=== PATIENT | male | born 1950 | race Caucasian/White ===

== ENCOUNTER → 2017-09-03 | Outpatient (CLI) | payer OTHER | END | disposition home or self-care (01) | LOC: ECHO 14:33 | DX: I35.0 Nonrheumatic aortic (valve) stenosis (principal); I31.3 Pericardial effusion (noninflammatory) | CPT/HCPCS: 93306 ==

== ENCOUNTER → 2017-09-12 | Outpatient (CLI) | payer OTHER ==
[2017-09-12] MEDS: GADOBUTROL 7.5 MMOL/7.5 ML VIAL IV ×2 (10:14)
== END | disposition home or self-care (01) ==
LOC: KCIC MRI 08:29
DX: I63.9 Cerebral infarction, unspecified (principal)
CPT/HCPCS: 70546; 70553; A9585

== ENCOUNTER → 2018-01-07 | Outpatient (CLI) | payer OTHER ==
[~2018-01-07] MED LIST: AMLO2.5T3 PO; ASPI-630 PO; ATORVASTATIN CA80 MG PO; BUDE10.2 IH; CIPR500T PO; CLOP75TA57 PO; EZET10TA18 PO; FEXO180T16 PO; FURO40TA4 PO; GABA-587 PO; GABA600T2 PO; GADOBUTROL 10 MMOL/10 ML VIAL IV ONE; IBUP-1060 PO; INSU100C4 SQ; ISOS30TA4 PO; METO10TA PO; METO25TA2 PO; METR500T8 PO; NITR0.4T SL; PANT20TA2 PO; PROAIR HFA8.5 GM INH; RANO500T2 PO; TAMS0.4C2 PO; TIOT18CA IH; TRAM50TA PO
--- NOTE | 2018-01-07 11:26 | KCIC ---
MRI of the Brain without and with Contrast 01/07/2018 Clinical History: Diplopia and unsteady gait. Technique: Unenhanced T1-weighted sagittal and axial and FLAIR, T2-weighted, gradient echo and diffusion-weighted axial images of the brain were obtained. After the intravenous administration of 12 cc of Gadavist, enhanced T1-weighted axial,and coronal images of the brain were obtained. Findings: Comparison study is dated 09/12/2017. There is generalized parenchymal atrophy. Patchy, confluent and multiple focal areas of abnormally increased signal intensity are seen within the periventricular and subcortical white matter of both cerebral hemispheres on the FLAIR and T2-weighted images consistent with areas of small vessel ischemic disease. These have not significantly changed. The enhancing lesion involving the right thalamus has resolved. This is felt to most likely represent subacute infarct on the previous examination. No acute parenchymal abnormality is seen. No abnormal area of contrast enhancement is noted. No extra-axial fluid collection is seen. There is no MRI evidence of acute ischemia/infarction. The orbits are within normal limits. Mild mucosal thickening is seen scattered throughout the paranasal sinuses. A 2.3 cm mucous retention cyst is seen involving the right maxillary sinus. A moderate sized right mastoid effusion is seen. A minimal left mastoid effusion is noted. Normal flow voids are seen within the major vascular structures surrounding the brain parenchyma. Impression: The small area of enhancement involving the right thalamus seen on previous examination has resolved as outlined above. No acute parenchymal abnormality is seen. Electronically signed by: Georges Bee MD (01/07/2018 11:22 AM) [facility]
== END | disposition home or self-care (01) ==
LOC: KCIC MRI 09:07
PROVIDERS: ATTEND Internal Medicine
DX: H53.2 Diplopia (principal)
CPT/HCPCS: 70553; 82565; A9585

== ENCOUNTER 2019-02-17 06:36 | Inpatient (IN) | payer OTHER ==
[~2019-02-17] VITALS: Ht 177.8 cm; Wt 125.8 kg
[2019-02-17] VITALS (15 sets, daily range): BP systolic 115–145; BP diastolic 50–78
[~2019-02-17 06:36] MED LIST changes: +ALBU2.5V8 INH; -AMLO2.5T3 PO; +AMLO2.5T5 PO; -EZET10TA18 PO; +EZET10TA20 PO; -GABA-587 PO; +GABA-689 PO; -GABA600T2 PO; +GABA600T7 PO; -GADOBUTROL 10 MMOL/10 ML VIAL IV ONE; +METR-34 PO; -METR500T8 PO; -NITR0.4T SL; +NITR0.4T24 SL; -PROAIR HFA8.5 GM INH
[2019-02-17] MEDS ORDERED: FURO-68 PO (10:25)
[2019-02-17] MEDS ORDERED: ISOS60TA2 PO (10:25)
[2019-02-17] MEDS ORDERED: INSU100I13 SQ (10:25)
[2019-02-17] MEDS ORDERED: GABA600T7 PO (10:25)
[2019-02-17] MEDS ORDERED: CLOP75TA PO (10:25)
[2019-02-17] MEDS ORDERED: ACET500T33 PO (10:25)
[2019-02-17] MEDS ORDERED: EZET10TA20 PO (10:25)
[2019-02-17] MEDS ORDERED: ATORVASTATIN CA80 MG PO (10:25)
[2019-02-17] MEDS ORDERED: LIDO30CR TP (10:25)
[2019-02-17] MEDS ORDERED: TAMS0.4C97 PO (10:25)
[2019-02-17] MEDS ORDERED: TRAM50TA PO (10:25)
[2019-02-17] MEDS ORDERED: ASPI-630 PO (10:25)
[2019-02-17] MEDS ORDERED: AMLO10TA8 PO (10:25)
[2019-02-17] MEDS ORDERED: RANO10002 PO (10:25)
[2019-02-17] MEDS ORDERED: METO100T7 PO (10:25)
[2019-02-17] MEDS ORDERED: NITR0.4T22 SL (10:25)
[2019-02-17] MEDS ORDERED: LIDO700A21 TP (10:25)
[2019-02-17] MEDS ORDERED: INSU100I17 SQ (10:25)
[2019-02-17] MEDS ORDERED: HYDR410O TP (10:25)
[2019-02-17] MEDS ORDERED: CARB15DR3 EACHEYE (10:25)
[2019-02-17] MEDS ORDERED: METF10007 PO (10:25)
[2019-02-17] MEDS ORDERED: TIOT18CA IH (10:25)
--- NOTE | 2019-02-17 10:34 | PDOC2 ---
JACI ZAMORANO CLINIC NURSE 02/17/19 1034: CARDIAC CONSULT DATE OF CONSULT Date of Consult DATE: 02/17/19 TIME: 10:33 REASON FOR CONSULT Reason for Consult: Chest pain, elevated troponin REFERRING PHYSICIAN Referring Physician: Dr. Palm SOURCE Source: Chart review, Patient HISTORY OF PRESENT ILLNESS HISTORY OF PRESENT ILLNESS This is a 68 yo male who transferred from the [facility] secondary to chest pain and elevated troponin. Patient follows with the [facility]. Has extensive cardiac history as noted below. Had routine visit with Dr. Smith a week and a half ago. Was SOA, slightly disoriented, and had mild chest pain. Was referred to the ED for further evaluation and treatment. Was a dmitted to the ICU. Hgb drifted from 12 range down to 7.4. Concerns for GI bleed. Underwent EGD and colonoscopy without any obvious bleeding per . Was discharge home with iron this past Friday. [place] well over the weekend. On Friday morning, legs were weak "felt like Jello" and had difficulty with speech. Had mild pain in his central chest and shortness of breath. Decided to go back to the ED at the [facility]. Overnight, developed excruciating pain in his central chest. Describes as squeezing. Radiated down his left arm. Associated with nausea/vomiting, belching, and shortness of breath. Took nitro x4 without any significant relief. Was start on nitro and heparin gtt without any significant improvement. Was given IV morphine, which finally improved the pain. Trop was noted to be elevated, reportedly 6.5, and patient was transferred to [facility] for further evaluation and treatment. Presently CP free. PAST MEDICAL HISTORY Cardiovascular: CAD, HTN, IA, Hyperlipidemia, Aortic stenosis Pulmonary: COPD, Other (LUNA) GI: GERD, Peptic Ulcer disease Psych: Anxiety Musculoskeletal: Osteoarthritis Renal/: Chronic renal insuff, Benign prostatic enlarg. Endocrine: Diabetes PAST SURGICAL HISTORY Past Surgical History: Cholecystectomy, CABG, Cataract Removal, Total knee replacement FAMILY HISTORY Family History: Cancer, Diabetes, Hypertension SOCIAL HISTORY Smoke: Quit (1 week ago ) ALCOHOL: none Drugs: None Lives: with Family ALLERGIES ALLERGIES: Coded Allergies: Fish Containing Products (Unverified Allergy, Intermediate, 03/18/16) Iodinated Contrast Media (Verified Allergy, Intermediate, 03/18/16) codeine (Unverified Allergy, Intermediate, 03/18/16) fenofibrate (Unverified Allergy, Intermediate, 03/18/16) lisinopril (Unverified Allergy, Intermediate, 03/18/16) losartan (Unverified Allergy, Intermediate, 03/18/16) niacin (Unverified Allergy, Intermediate, 03/18/16) nifedipine (Unverified Allergy, Intermediate, 03/18/16) procaine (Unverified Allergy, Intermediate, 03/18/16) rosuvastatin (Unverified Allergy, Intermediate, 03/18/16) spironolactone (Unverified Allergy, Intermediate, 03/18/16) Uncoded Allergies: SEAFOOD (Allergy, Unknown, 03/18/16) ROS Review of System 14 point ROS conducted with pertinent positives noted above in HPI. PHYSICAL EXAM General: Alert, Oriented X3, Cooperative, No acute distress HEENT: Atraumatic, Mucous membr. moist/pink Lungs: Other (diminished bases; on BiPAP) Heart: Regular rate, Other (distant heart tones ) Abdomen: Soft, Other (obese ) Extremities: No edema, Normal pulses Skin: No significant lesion Neuro: Normal speech, Sensation intact Psych/Mental Status: Mental status NL, Mood NL MUSCULOSKELETAL: Osteoarthritic changes both hands ECHOCARDIOGRAM ECHOCARDIOGRAM <Conclusion> The systolic function is low normal. EF 50-55% Grossly normal wall motion. Not well visualized due to suboptimal images. Doppler and Color Flow revealed mild aortic regurgitation. There is mild aortic valve stenosis. MG 20 mm Hg. Doppler and Color Flow revealed trace to mild tricuspid regurgitation. No significant pulmonary HTN. There is a minimal pericardial effusion. DATE: 09/03/17 1750 STRESS TEST STRESS TEST Conclusion 1. No evidence of stress induced EKG changes. 2. Normal myocardial perfusion at stress and rest. 3. Normal EF with stress. EF > 65% 4. Low risk study. DATE: 05/18/15 1420 HEART CATH HEART CATH 01/08/16 [facility] cath; Petent main-ramus stent, DATA RECOVERY PLANNER LAD (patent SARMIENTO-mLAD graft) 09/04/17: 70% main, DATA RECOVERY PLANNER pLAD (SARMIENTO-mid LAD patent); DATA RECOVERY PLANNER pCX (patent SVG-OM2) 11/19/17 [facility]: 50% main, DATA RECOVERY PLANNER pLAD (patent SARMIENTO -mid LAD); DATA RECOVERY PLANNER proximal CX (30% SVG-OM2) 09/04/18 [facility]: 50% main, DATA RECOVERY PLANNER prox LAD (patent SARMIENTO- mid LAD); DATA RECOVERY PLANNER prox CX (50% SVG-OM2) ASSESSMENT/PLAN ASSESSMENT/PLAN 1. Chest pain, unstable angina 2. NSTEMI; trop 14.9 3. CAD s/p CABG 2005. Most recent cath 08/30 with 50% main lesion, DATA RECOVERY PLANNER proximal LAD, patent SARMIENTO-LAD, DATA RECOVERY PLANNER proximal Cx, 50% lesion SVG-OM2. On Ranexa 1000mg BID 4. Acute on chronic respiratory failure, COPD. Requiring BiPAP. Doubt CHF 5. Anemia; concerns for GI bleed last week. HGB drop from 12 range to 7.4. Improved to 8.7 (02/17) s/p iron infusion. No blood transfusion received. Colonoscopy without bleeding source but reportedly referred to oncologist per . 6. ? CKD. 7. Hypertension 8. Hyperlipidemia 9. Diabetes, II 10. LUNA, morbid obestiy 11. Tobaccoism; quit last week Recommendations Trend troponin EKG BMP Obtain cardiac records from [place] Limited echo to assess LV systolic function Heparin for CV protocol Monitor H and H overnight Supportive care Keep NPO after midnight with possibility of cardiac cath in am. MECHELLE HARRISON MD 02/17/19 1578: CARDIAC CONSULT ASSESSMENT/PLAN ASSESSMENT/PLAN Patient seen and examined. Agree with above nurse practitioner note. 68-year-old man with multiple cardiovascular comorbidities with concern for recent GI bleeding presents with a recurrent non-ST elevation IA We will await outside hospital records. Depending on his pain and troponin elevation may consider cardiac catheterization tomorrow if he does not have any further bleeding stigmata overnight. Patient is critically ill discussed with his [id number]. Greater than 60 minutes critical care time, spent discussing the case with the patient, reviewing outside hospital records and discussing case with consult and physicians. JACI ZAMORANO APRN Feb 17, 2019 10:34 MECHELLE HARRISON MD Feb 17, 2019 18:18
--- NOTE | 2019-02-17 10:55 | NUR ---
1043 Adm/trans from [facility] per EMS after increased /unrelieved CP 01/21,SOA requiring BiPAP use. Heparin started there after 4000unit bolus with change in Heparin rate to 12u/KG after admit to [facility] per protocol.Reported EKG to be non -stemi. Reports CP now 07/22. Consult to cardiology... Nano KELLER aware. See flow sheets for further specifics.
--- NOTE | 2019-02-17 11:38 | EKG ---
[facility] [address] [place] [address] Test Date: 2019-02-17 Test Time: 11:30:18 Pat Name: CE MORALES Department: Room: 109 1 Gender: M Hack Driver: : 1950 Requested By: JACI ZAMORANO Order Number: [id number] Reading MD: Measurements Intervals [place] Rate: 85 P: 90 CO: 110 QRS: -10 QRSD: 178 T: 177 QT: 384 QTc: 463 Interpretive Statements SINUS RHYTHM CONSIDER WPW, TYPE B LEFTWARD AXIS QRS(T) CONTOUR ABNORMALITY CONSIDER INFERIOR INFARCT ST & T ABNORMALITY, CONSIDER HIGH LATERAL ISCHEMIA OR LEFT VENTRICULAR STRAIN ABNORMAL ECG RI6.01 Unconfirmed report No previous ECG available for comparison
[2019-02-17 12:14] LABS: CALCIUM 8.9 mg/dL (8.5-10.1); CREATININE 1.8 mg/dL (0.7-1.3); GFR 37.8
[2019-02-17 12:19] LABS: ALBUMIN 3.2 g/dL (3.4-5.0); ALBUMIN/GLOBULIN RATIO 0.8 (1.0-1.7); TOTAL BILIRUBIN 0.7 mg/dL (0.2-1.0); TOTAL PROTEIN 7.1 g/dL (6.4-8.2)
[2019-02-17 12:57] LABS: HEMATOCRIT 26.2 % (39.0-53.0); HEMOGLOBIN 8.7 g/dL (13.0-17.5); RED BLOOD COUNT 3.51 x10^6/uL (4.30-5.70); RED CELL DISTRIBUTION WIDTH 18.7 % (11.5-14.5); WHITE BLOOD COUNT 10.8 x10^3/uL (4.0-11.0)
[2019-02-17] MEDS ORDERED: CLOPIDOGREL BISULFATE 75 MG TABLET PO SCH (13:00)
--- NOTE | 2019-02-17 14:24 | PDOC1 ---
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 Basically he developed chest pain and was noted be quite anemic at the [facility] He was accepted as a transfer patient is now on the ICU where he is being examined Past Medical/Surgical History: PMH/PSH: COPD CABG Hypertension Hyperlipidemia Diabetes Obstructive sleep apnea Allergies: Allergies: Coded Allergies: Fish Containing Products (Unverified Allergy, Intermediate, 03/18/16) Iodinated Contrast Media (Verified Allergy, Intermediate, 03/18/16) codeine (Unverified Allergy, Intermediate, 03/18/16) fenofibrate (Unverified Allergy, Intermediate, 03/18/16) lisinopril (Unverified Allergy, Intermediate, 03/18/16) losartan (Unverified Allergy, Intermediate, 03/18/16) niacin (Unverified Allergy, Intermediate, 03/18/16) nifedipine (Unverified Allergy, Intermediate, 03/18/16) procaine (Unverified Allergy, Intermediate, 03/18/16) rosuvastatin (Unverified Allergy, Intermediate, 03/18/16) spironolactone (Unverified Allergy, Intermediate, 03/18/16) Uncoded Allergies: SEAFOOD (Allergy, Unknown, 03/18/16) Family History: Family History: Hypertension Social History: Social Hisoty: He does not drink smoke or take drugs 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 Current Medications: Current Medications Current Medications Clopidogrel Bisulfate (Plavix) 75 mg DAILY PO ; Start 02/17/19 at 13:00 Isosorbide Mononitrate (Imdur) 30 mg DAILY PO ; Start 02/17/19 at 13:00 Ranolazine (Ranexa) 500 mg BID PO ; Start 02/17/19 at 13:00 Atorvastatin Calcium (Lipitor) 80 mg QHS PO ; Start 02/17/19 at 21:00 Metoprolol Tartrate (Lopressor) 50 mg BID PO ; Start 02/17/19 at 13:00 Active Scripts Active Reported Novolog Flexpen (Insulin Aspart) 100 Unit/1 Ml Insuln.pen 10 Unit SQ TIDAC Lantus Solostar (Insulin Glargine,Hum.rec.anlog) 100 Unit/1 Ml Insuln.pen 35 Unit SQ QHS Hydrophilic Ointment 410 Gm Oint...g. 410 Gm TP PRN BID Tylenol Extra Strength (Acetaminophen) 500 Mg Tablet 500 Mg PO PRN Q8HRS PRN Metformin Hcl 1,000 Mg Tablet 1,000 Mg PO BIDWMEALS Lidocaine-Prilocaine Cream (Lidocaine/Prilocaine) 30 Gm Cream..g. 1 Surinder TP UD PRN Lidocaine PATCH (Lidocaine) 1 Each Adh..patch 1 Each TP DAILY REMOVE AFTER 12 HOURS Refresh Optive Eye Drops (Carboxymethylcellulos/Glycerin) 15 Ml Drops 1 Drop EACHEYE QID Tramadol Hcl 50 Mg Tablet Unknown Dose PO Q6HRS PRN Spiriva (Tiotropium Manning) 18 Mcg Cap.w.dev 2 Inh IH DAILY Tamsulosin Hcl 0.4 Mg Cap.er.24h Unknown Dose PO DAILY Ranexa (Ranolazine) 500 Mg Tab.er.12h 500 Mg PO Protonix (Pantoprazole Sodium) 20 Mg Tablet.dr 20 Mg PO DAILY Nitrostat (Nitroglycerin) 0.4 Mg Tab.subl 0.4 Mg SL PRN Q5MIN PRN Metronidazole 500 Mg Tablet 500 Mg PO TID Metoclopramide Hcl 10 Mg Tablet 10 Mg PO BIDAC Isosorbide Mononitrate Er (Isosorbide Mononitrate) 30 Mg Tab.er.24h 30 Mg PO DAILY Ibuprofen 800 Mg Tablet 800 Mg PO PRN Q6HRS PRN Gabapentin (Gabapentin) 400 Mg Capsule 400 Mg PO TID Furosemide 40 Mg Tablet 40 Mg PO DAILY Fexofenadine Hcl 180 Mg Tablet 180 Mg PO DAILY Plavix (Clopidogrel Bisulfate) 75 Mg Tablet 75 Mg PO DAILY Ciprofloxacin Hcl 500 Mg Tablet 500 Mg PO BID Symbicort 160-4.5 Mcg Inhaler (Budesonide/Formoterol Fumarate) 10.2 Gm Hfa.aer.ad 1 Puff IH BID Atorvastatin Calcium 80 Mg Tablet 80 Mg PO DAILY Amlodipine Besylate 2.5 Mg Tablet 2.5 Mg PO DAILY Proair Hfa Inhaler (Albuterol Sulfate) 8.5 Gm Hfa.aer.ad 1 Puff INH PRN Q6HRS PRN Aspirin 81 Mg Tab.chew Unknown Dose PO Tramadol Hcl 50 Mg Tablet Unknown Dose PO Q6HRS PRN Zetia (Ezetimibe) 10 Mg Tablet Unknown Dose PO DAILY Novolog (Insulin Aspart) 100 Unit/1 Ml Cartridge Unknown Dose SQ Toprol Xl (Metoprolol Succinate) 25 Mg Tab.er.24h Unknown Dose PO DAILY ROS: Review of Systems Review of System REVIEW OF SYSTEMS: GENERAL: Denies weakness SKIN: No bruising, hair changes or rashes. EYES: No blurred, double or loss of vision. NOSE AND THROAT: No history of nosebleeds, hoarseness or sore throat. HEART: No history of palpitations, chest pain or shortness of breath on exertion. LUNGS: Denies cough, hemoptysis, wheezing or shortness of breath. GASTROINTESTINAL: Denies changes in appetite, nausea, vomiting, diarrhea or constipation. GENITOURINARY: No history of frequency, urgency, hesitancy or nocturia. NEUROLOGIC: Denies history of numbness, tingling, tremor or weakness. PSYCHIATRIC: No history of panic, anxiety or depression. ENDOCRINE: No history of heat or cold intolerance, polyuria or polydipsia. EXTREMITIES: Denies muscle weakness, joint pain, pain on walking or stiffness. Physical Exam: Vital Signs: Vital Signs Date Time Temp Pulse Resp B/P (MAP) Pulse Ox O2 Delivery O2 Flow Rate FiO2 02/17/19 11:00 19 129/62 (84) 99 BiPAP/CPAP 02/17/19 10:30 84 02/17/19 09:42 98.3 98.3 Physcial Exam: GEN.: No apparent distress. Alert and oriented. HEENT: Head is normocephalic, atraumatic NECK: Supple, no JVD LUNGS: Clear to auscultation without rhonchi or wheezing HEART: RRR, S1, S2 present. Peripheral pulses intact ABDOMEN: Soft, nontender. Positive bowel sounds no organomegaly EXTREMITIES: Without any cyanosis, clubbing, or edema. Pedal pulses intact NEUROLOGIC: Normal speech, normal tone. A&O x 3 PSYCHIATRIC: Normal affect, normal mood. Stable SKIN: No ulcerations or rashes VASCULAR: Good capillary refill Labs: Labs: Laboratory Tests Test 02/17/19 11:45 White Blood Count 10.8 x10^3/uL (4.0-11.0) Red Blood Count 3.51 x10^6/uL (4.30-5.70) Hemoglobin 8.7 g/dL (13.0-17.5) Hematocrit 26.2 % (39.0-53.0) Mean Corpuscular Volume 75 fL (79-100) Mean Corpuscular Hemoglobin 25 pg (25-35) Mean Corpuscular Hemoglobin Concent 33 g/dL (31-37) Red Cell Distribution Width 18.7 % (11.5-14.5) Platelet Count 261 x10^3/uL (140-400) Sodium Level 142 mmol/L (136-145) Potassium Level 5.0 mmol/L (3.5-5.1) Chloride Level 101 mmol/L (98-107) Carbon Dioxide Level 33 mmol/L (21-32) Anion Gap 8 (6-14) Blood Urea Nitrogen 23 mg/dL (8-26) Creatinine 1.8 mg/dL (0.7-1.3) Estimated GFR (Cockcroft-Gault) 37.8 BUN/Creatinine Ratio 13 (6-20) Glucose Level 152 mg/dL (70-99) Calcium Level 8.9 mg/dL (8.5-10.1) Total Bilirubin 0.7 mg/dL (0.2-1.0) Aspartate Amino Transf (AST/SGOT) 56 U/L (15-37) Alanine Aminotransferase (ALT/SGPT) 13 U/L (16-63) Alkaline Phosphatase 132 U/L (46-116) Troponin I Quantitative 14.972 ng/mL (0.000-0.055) Total Protein 7.1 g/dL (6.4-8.2) Albumin 3.2 g/dL (3.4-5.0) Albumin/Globulin Ratio 0.8 (1.0-1.7) Laboratory Tests Test 02/17/19 11:45 White Blood Count 10.8 x10^3/uL (4.0-11.0) Red Blood Count 3.51 x10^6/uL (4.30-5.70) Hemoglobin 8.7 g/dL (13.0-17.5) Hematocrit 26.2 % (39.0-53.0) Mean Corpuscular Volume 75 fL (79-100) Mean Corpuscular Hemoglobin 25 pg (25-35) Mean Corpuscular Hemoglobin Concent 33 g/dL (31-37) Red Cell Distribution Width 18.7 % (11.5-14.5) Platelet Count 261 x10^3/uL (140-400) Sodium Level 142 mmol/L (136-145) Potassium Level 5.0 mmol/L (3.5-5.1) Chloride Level 101 mmol/L (98-107) Carbon Dioxide Level 33 mmol/L (21-32) Anion Gap 8 (6-14) Blood Urea Nitrogen 23 mg/dL (8-26) Creatinine 1.8 mg/dL (0.7-1.3) Estimated GFR (Cockcroft-Gault) 37.8 BUN/Creatinine Ratio 13 (6-20) Glucose Level 152 mg/dL (70-99) Calcium Level 8.9 mg/dL (8.5-10.1) Total Bilirubin 0.7 mg/dL (0.2-1.0) Aspartate Amino Transf (AST/SGOT) 56 U/L (15-37) Alanine Aminotransferase (ALT/SGPT) 13 U/L (16-63) Alkaline Phosphatase 132 U/L (46-116) Troponin I Quantitative 14.972 ng/mL (0.000-0.055) Total Protein 7.1 g/dL (6.4-8.2) Albumin 3.2 g/dL (3.4-5.0) Albumin/Globulin Ratio 0.8 (1.0-1.7) Assessment/Plan Assessment/Plan ASSESSMENT/PLAN 1. Chest pain, probable unstable angina 2. NSTEMI; trop 14.9 3. CAD s/p CABG 2005. Most recent cath 08/30 with 50% main lesion, CARE PROGRAM DIRECTOR proximal LAD, patent SARMIENTO-LAD, CARE PROGRAM DIRECTOR proximal Cx, 50% lesion SVG-OM2. On Ranexa 1000mg BID 4. Acute on chronic respiratory failure, COPD. Requiring BiPAP. Doubt CHF 5. Anemia; concerns for GI bleed last week. HGB drop from 12 range to 7.4. Improved to 8.7 (02/17) without transfusion. Colonoscopy without bleeding source but reportedly referred to oncologist per . 6. ? CKD. 7. Hypertension 8. Hyperlipidemia 9. Diabetes, II 10. LUNA, morbid obestiy 11. Tobaccoism; quit last week ROSHAN SHERWOOD III DO Feb 17, 2019 14:24
[2019-02-17] MEDS: METOPROLOL TART IMMED RELEASE 50 MG TABLET. PO SCH ×2 (14:42→22:13)
[2019-02-17] MEDS: ISOSORBIDE MONONITRATE ER 30 MG TAB.ER.24H PO SCH (14:42)
[2019-02-17] MEDS: RANOLAZINE 500 MG TAB.ER.12H PO SCH ×2 (14:42→22:10)
[2019-02-17] MEDS ORDERED: NITROGLYCERIN SUBLINGUAL 0.4 MG BOTTLE OF 25. SL ONE (15:29)
[2019-02-17] MEDS ORDERED: NITROGLYCERIN SUBLINGUAL 0.4 MG BOTTLE OF 25. SL PRN (15:30)
[2019-02-17] MEDS ORDERED: MORPHINE SULFATE 2 MG/ML VIAL. IV PRN (15:30)
--- NOTE | 2019-02-17 15:36 | CARD ---
MR#: [id number] Date of Study: 02/17/2019 Ordering Physician: JACI ZAMORANO, Referring Physician: JACI ZAMORANO, Tech: Carol Jarquin APPROVED REPORT EXAM: Two-dimensional and M-mode echocardiogram with Doppler and color Doppler. Other Information Quality : AverageHR: 88bpm Technically limited study due to body habitus and smoking. INDICATION COPD Cardiac Disease: CAD Non STEMI Surgery/Intervention CABG: Date: 2006 RISK FACTORS Hypertension Hyperlipidemia Diabetes 2D DIMENSIONS Left Atrium(2D)4.8 (1.6-4.0cm)IVSd1.3 (0.7-1.1cm) Aortic Root(2D)3.5 (2.0-3.7cm)LVDd6.2 (3.9-5.9cm) LVOT Diameter2.1 (1.8-2.4cm)PWd1.4 (0.7-1.1cm) LVDs4.8 (2.5-4.0cm)FS (%) 21.7 % SV82.1 ml Aortic Valve AoV Peak Yasir.260.3cm/sAoV VTI55.2cm AO Peak GR.27.1mmHgLVOT VTI 16.30cm AO Mean GR.18mmHg LEFT VENTRICLE Limited study for LV function. The Left Ventricle is mildly dilated. There is milld concentric left v entricular hypertrophy. The left ventricular systolic function is low normal. The Ejection Fraction i s estimated at 50%. There is normal LV segmental wall motion. Diastology not performed. RIGHT VENTRICLE The right ventricle is normal size. There is normal right ventricular wall thickness. The right ventr icular systolic function is normal. ATRIA The left atrium is mildly dilated. The right atrium size is normal. The interatrial septum is intact with no evidence for an atrial septal defect or patent foramen ovale as noted on 2-D or Doppler imagi ng. AORTIC VALVE The aortic valve is mildly to moderately calcified. Doppler and color-flow analysis was not performed . There is trace valvular aortic stenosis. MITRAL VALVE The mitral valve is thickened but opens well. There is no evidence of mitral valve prolapse. There is no mitral valve stenosis. Doppler and color-flow analysis was not performed. TRICUSPID VALVE The tricuspid valve is not well visualized. Doppler and color-flow analysis was not performed. PULMONIC VALVE The pulmonic valve is not visualized. Doppler and color-flow analysis was not performed. GREAT VESSELS The aortic root is normal in size. The IVC is dilated. PERICARDIAL EFFUSION There is a trace pericardial effusion with no hemodynamic significance. Critical Notification Critical Value: No <Conclusion> Limited study for LV function. The Left Ventricle is mildly dilated. The left ventricular systolic function is low normal. The Ejection Fraction is estimated at 50%. There is milld concentric left ventricular hypertrophy. There is a trace pericardial effusion with no hemodynamic significance. Signed by : Cullen Bryant MD Electronically Approved : 02/17/2019 15:35:55
[2019-02-17] MEDS: MORPHINE SULFATE 2 MG/ML VIAL. IV PRN ×3 (15:44→19:51)
--- NOTE | 2019-02-17 15:49 | NUR ---
1300 Seen by KRISHNA Mcgill. Repeat troponin to 14.9. Dr Allen in w quick assessment. Multiple consults called w return calls ie ;consult information. Med records from [place] available to both cardiology and GI .Seen then charted. 1515: CP persistent again 09/21 . SL nitro x1 w/o relief. MS 2mg w ongoing assessment at this time. Family home for night. Remains on O2 4lnc after Bipap off after cleared to eat lunch.Discussed possible am heart cath in am. Will be NPO after 0000.
--- NOTE | 2019-02-17 15:59 | PDOC2 ---
GI CONSULT Reason For Consult: Anemia HPI: HPI: 68 y/o male transferred from [facility]. Says he was evaluated there because he was disoriented at home, also had chest pain and SOA. Sent to [facility] w/ worsening chest pain (left sided w/ radiation down left arm - can be 01/21) and elevated troponin. H/o CAD, CABG ~12 years ago, and most recent cath in 08/2018. Was on BiPAP this morning, now NC. While at [facility] last week, was noted to be anemic. No obvious bleeding, but had GI eval. EGD 02/11/19 for MARZENA (by Dr. Gelnn Dow): acute gastritis, LA Grade A esophagitis, portal hypertensive gastropathy. Colonoscopy 02/11/19 for MARZENA: inadequate prep - 9mm polyp in ascending colon polyp (removed w/ hot snare and clipped), 6mm polyp in transverse colon, diverticulosis, internal hemorrhoids. Colonoscopy 02/12/19: fair prep after second Miralax prep - 6mm polyp in cecum, 6mm polyp in transverse colon, diverticulosis in sigmoid and descending colon, internal hemorrhoids. Endoclip from previous colonoscopy noted. The patient says he was given "antibiotics for an infection in my stomach" and also received iron transfusion (and was also discharged home on iron). H/o GERD on pantoprazole QD - was off for awhile and restarted ~2 weeks ago. No dysphagia. Vomited once and has had some belching - currently asymptomatic. No hematemesis, hematochezia, or melena. Hasn't stooled since colonoscopy. Weight fluctuates. S/p cholecystectomy for stones. Says had Hep A when he was 20. No liver or pancreas history. Always has polyps on colonoscopies and thinks he had an ulcer on EGD once. On ASA and Plavix, no NSAIDs. We are asked to see him here for anemia - Hgb 8.7, MCV 75, BUN 23. PMH: PMH: CAD, HTN, MIs, HLD, , COPD, LUNA, GERD, PUD, portal hypertensive gastropathy, colon polyps, diverticulosis, anxiety, OA, CKD, BPH, DM, melanoma, Hep A, constipation cholecystectomy, CABG, cataract removal, left knee arthroscopy, pacemaker FH: Family History: No pertinent hx Social History: Smoke: Quit (last week) ALCOHOL: occassional Drugs: None ROS: GEN: Denies fevers, chills, sweats HEENT: Denies blurred vision, sore throat CV: +chest pain RESP: +SOA GI: Per HPI : Denies hematuria, dysuria ENDO: +fluctuating weight NEURO: Denies confusion, dizziness MSK: Denies weakness, joint pain/swelling SKIN: Denies jaundice, pruritus Vitals: Vitals: Vital Signs Date Time Temp Pulse Resp B/P (MAP) Pulse Ox O2 Delivery O2 Flow Rate FiO2 02/17/19 14:42 84 129/62 02/17/19 11:00 19 99 BiPAP/CPAP 02/17/19 09:42 98.3 98.3 Labs: Labs: Laboratory Tests Test 02/17/19 11:45 White Blood Count 10.8 x10^3/uL (4.0-11.0) Red Blood Count 3.51 x10^6/uL (4.30-5.70) Hemoglobin 8.7 g/dL (13.0-17.5) Hematocrit 26.2 % (39.0-53.0) Mean Corpuscular Volume 75 fL (79-100) Mean Corpuscular Hemoglobin 25 pg (25-35) Mean Corpuscular Hemoglobin Concent 33 g/dL (31-37) Red Cell Distribution Width 18.7 % (11.5-14.5) Platelet Count 261 x10^3/uL (140-400) Sodium Level 142 mmol/L (136-145) Potassium Level 5.0 mmol/L (3.5-5.1) Chloride Level 101 mmol/L (98-107) Carbon Dioxide Level 33 mmol/L (21-32) Anion Gap 8 (6-14) Blood Urea Nitrogen 23 mg/dL (8-26) Creatinine 1.8 mg/dL (0.7-1.3) Estimated GFR (Cockcroft-Gault) 37.8 BUN/Creatinine Ratio 13 (6-20) Glucose Level 152 mg/dL (70-99) Calcium Level 8.9 mg/dL (8.5-10.1) Total Bilirubin 0.7 mg/dL (0.2-1.0) Aspartate Amino Transf (AST/SGOT) 56 U/L (15-37) Alanine Aminotransferase (ALT/SGPT) 13 U/L (16-63) Alkaline Phosphatase 132 U/L (46-116) Troponin I Quantitative 14.972 ng/mL (0.000-0.055) Total Protein 7.1 g/dL (6.4-8.2) Albumin 3.2 g/dL (3.4-5.0) Albumin/Globulin Ratio 0.8 (1.0-1.7) Allergies: Coded Allergies: Fish Containing Products (Unverified Allergy, Intermediate, 03/18/16) Iodinated Contrast Media (Verified Allergy, Intermediate, 03/18/16) codeine (Unverified Allergy, Intermediate, 03/18/16) fenofibrate (Unverified Allergy, Intermediate, 03/18/16) lisinopril (Unverified Allergy, Intermediate, 03/18/16) losartan (Unverified Allergy, Intermediate, 03/18/16) niacin (Unverified Allergy, Intermediate, 03/18/16) nifedipine (Unverified Allergy, Intermediate, 03/18/16) procaine (Unverified Allergy, Intermediate, 03/18/16) rosuvastatin (Unverified Allergy, Intermediate, 03/18/16) spironolactone (Unverified Allergy, Intermediate, 03/18/16) Uncoded Allergies: SEAFOOD (Allergy, Unknown, 03/18/16) Medications: Current Medications Medications (Trade) Dose Ordered Sig/Mejia Route PRN Reason Start Time Stop Time Status Last Admin Dose Admin Clopidogrel Bisulfate (Plavix) 75 mg DAILY PO 02/17/19 13:00 02/17/19 14:41 DC 02/17/19 14:43 Isosorbide Mononitrate (Imdur) 30 mg DAILY PO 02/17/19 13:00 02/17/19 14:42 Ranolazine (Ranexa) 500 mg BID PO 02/17/19 13:00 02/17/19 14:42 Metoprolol Tartrate (Lopressor) 50 mg BID PO 02/17/19 13:00 02/17/19 14:42 Imaging: Imaging: - PE: GEN: NAD HEENT: Atraumatic, PERRL LUNGS: NC HEART: RRR, distant ABD: NABS, S/NT, obese EXTREMITY: No edema SKIN: No rashes, no jaundice NEURO/PSYCH: A & O 3 A/P: A/P: Chest pain, elevated troponin, resp failure, h/o CAD/CABG Microcytic anemia, ?CKD GERD, gastritis, portal hypertensive gastropathy - per EGD last week - ?H. pylo ri - no path available CRC screen, h/o polyps - two colonoscopies within the past week per HPI - no path available S/p cholecystectomy H/o Hep A -- Continue per cardiology. Monitor Hgb and transfuse as needed. Note hematology asked to see. Add PPI. KALEY VILLALOBOS Feb 17, 2019 15:59
--- NOTE | 2019-02-17 16:00 | NUR ---
1600 Resting in bed w eyes closed at this time . [facility] reviewed per Dr Jr chaves bedside H/P complete. Order changes noted.
--- NOTE | 2019-02-17 16:41 | PDOC2 ---
CONSULT Date of Consult Date of Consult DATE: 02/17/19 TIME: 16:27 Reason for consultation: anemia Consult: Hematology oncology, Dr. Federico Norris History of present illness: He is a 68-year-old man with anemia, hemoglobin as low as the 7 range he tells me, currently 8.7, tells me he had IV iron 1 bag at the [facility] recently, he had been admitted from his routine cardiology eval with Dr. Hauser at the [facility] for chest pain and trouble breathing, had 2 colonoscopies, an EGD, was sent home and told to use his oxygen full-time, and then came back in 2 days ago I believe to the [facility] at [place] due to chest pain and trouble breathing and weakness and being disoriented, this morning he tells me the pain was so bad it was unbearable, acute, severe, at the left chest, associated with trouble breathing, and weakness, improved with morphine, and a nitroglycerin pill, and he also required BiPAP and was transferred here and is doing quite a bit better but still has anemia. Troponin is positive as well. May get a cardiac catheter in the morning? Has had a history of CABG in the past and can lose 6-8 pounds at a time with his diuretics. Past medical history: obesity BPH Diabetes mellitus 2 Peripheral neuropathy of his feet Coronary artery disease Obstructive sleep apnea with CPAP Hypertension Myocardial infarct Hyperlipidemia Aortic stenosis COPD GERD Peptic ulcer disease Anxiety Osteoarthritis Chronic renal insufficiency History of melanoma approximately 2010 resected with no need for adjuvant therapy or history of recurrence Diverticulosis, internal hemorrhoids nonbleeding, polyps, acute gastritis, portal hypertensive gastropathy, reflux esophagitis seen on recent EGD and colonoscopy Past surgical history: EGD Multiple colonoscopies Cholecystectomy CABG Cataract surgery Total knee replacement Melanoma resection Allergies: Fish, seafood, iodine, codeine, fenofibrate, lisinopril, losartan, niacin, nifedipine, procaine, rosuvastatin, spironolactone Medications: See attached list Social history: quit tobacco a week ago per report, no alcohol, lives with family Family history: cancer, diabetes, hypertension Review of systems: chest pain, trouble breathing, weakness, disorientation, all improved, peripheral neuropathy in his feet, dry flaking skin, weight fluctuates related to diuretics, dark urine, was almost black recently, no known bleeding from anywhere, otherwise rest of 10 point review of systems negative Physical exam: Vitals reviewed Gen.: Well-nourished obese elderly man, talkative, in no acute distress HEENT: mucous membranes moist, head normocephalic atraumatic Neck: Supple, no lymphadenopathy Lymph nodes: No palpable lymphadenopathy neck or axilla, limited exam w/ obesity Lungs: Breathing comfortably on 4L NC O2, w/o evidence of respiratory distress Heart: Regular rate and rhythm Abdomen: Soft, nontender, nondistended Extremities: No cyanosis or signif edema Skin: No obvious rashes or skin breakdown, dry skin Neuro: Alert and oriented 3 Psych: Pleasant mood and affect Lab reviewed: white count 10.8, hemoglobin 8.7, platelets 261, MCV of 75 Creatinine of 1.8 Troponin of 14.9 In August 2018 at records show an A1c of 9.7, creatinine 1.27, hemoglobin of 12.4, MCV of 76, and TSH of 0.99 Rads reviewed: none here though colonoscopy and EGD reports reviewed, see above Case discussed with: patient, his nurse, records reviewed in [employer] and [facility], and in his chart, including labs, and endoscopy reports, please see note for summary details. Assessment and Plan: he is a 68-year-old man with acute coronary syndrome, and anemia and recent colon polypectomies Acute coronary syndrome: Per cardiology, may get cardiac catheterization soon, with positive troponin and hemoglobin less than 10 it would be reasonable to transfuse, hemoglobin is greater than 8, his nurse is calling cardiology to see if they'd like to keep Hb closer to 10 which sounds reasonable in his case Anemia: We will check B12, SPEP, ferritin and iron panel, copper, reticulocyte with next lab draw, tells me he had one bag of IV iron, we can certainly give further if need be, denies bleeding Renal insufficiency: Per others Recent colon polyps resected, pathology not available at this time, he was told he needed an oncology consult, would recommend obtaining path from recent polypectomies at the [facility] evidence of recent gastritis and esophagitis: may benefit from PPI? His nurse is calling GI Thank you kindly for this consultation, I will return on Friday but am available for any questions in the interim. Past Medical History Cardiovascular: CAD, HTN, ME, Hyperlipidemia, Aortic stenosis Pulmonary: COPD, Other (LUNA) GI: GERD, Peptic Ulcer disease Psych: Anxiety Musculoskeletal: Osteoarthritis Renal/: Chronic renal insuff, Benign prostatic enlarg. Endocrine: Diabetes Past Surgical History Past Surgical History: Cholecystectomy, CABG, Cataract Removal, Total knee replacement Family History Family History: Cancer, Diabetes, Hypertension Social History Quit (last week) ALCOHOL: occassional Drugs: None Lives: with Family Current Medications Current Medications Current Medications Clopidogrel Bisulfate (Plavix) 75 mg DAILY PO Last administered on 02/17/19at 14:43; Start 02/17/19 at 13:00; Stop 02/17/19 at 14:41; Status DC Isosorbide Mononitrate (Imdur) 30 mg DAILY PO Last administered on 02/17/19at 14:42; Start 02/17/19 at 13:00 Ranolazine (Ranexa) 500 mg BID PO Last administered on 02/17/19at 14:42; Start 02/17/19 at 13:00 Atorvastatin Calcium (Lipitor) 80 mg QHS PO ; Start 02/17/19 at 21:00 Metoprolol Tartrate (Lopressor) 50 mg BID PO Last administered on 02/17/19at 14:42; Start 02/17/19 at 13:00 Nitroglycerin (Nitrostat) 0.4 mg STK-MED ONCE SL ; Start 02/17/19 at 15:29; Stop 02/17/19 at 15:29; Status DC Morphine Sulfate (Morphine Sulfate) 2 mg PRN Q2HR PRN IV PAIN Last administered on 02/17/19at 15:44; Start 02/17/19 at 15:30 Nitroglycerin (Nitrostat) 0.4 mg PRN Q5MIN PRN SL CHEST PAIN; Start 02/17/19 at 15:30 Morphine Sulfate (Morphine Sulfate) 2 mg PRN Q2HR PRN IV PAIN; Start 02/17/19 at 15:30; Status UNV Active Scripts Active Reported Novolog Flexpen (Insulin Aspart) 100 Unit/1 Ml Insuln.pen 10 Unit SQ TIDAC Lantus Solostar (Insulin Glargine,Hum.rec.anlog) 100 Unit/1 Ml Insuln.pen 35 Unit SQ QHS Hydrophilic Ointment 410 Gm Oint...g. 410 Gm TP PRN BID Tylenol Extra Strength (Acetaminophen) 500 Mg Tablet 500 Mg PO PRN Q8HRS PRN Metformin Hcl 1,000 Mg Tablet 1,000 Mg PO BIDWMEALS Lidocaine-Prilocaine Cream (Lidocaine/Prilocaine) 30 Gm Cream..g. 1 Surinder TP UD PRN Lidocaine PATCH (Lidocaine) 1 Each Adh..patch 1 Each TP DAILY REMOVE AFTER 12 HOURS Refresh Optive Eye Drops (Carboxymethylcellulos/Glycerin) 15 Ml Drops 1 Drop E ACHEYE QID Tramadol Hcl 50 Mg Tablet Unknown Dose PO Q6HRS PRN Spiriva (Tiotropium [employer]) 18 Mcg Cap.w.dev 2 Inh IH DAILY Tamsulosin Hcl 0.4 Mg Cap.er.24h Unknown Dose PO DAILY Ranexa (Ranolazine) 500 Mg Tab.er.12h 500 Mg PO Protonix (Pantoprazole Sodium) 20 Mg Tablet.dr 20 Mg PO DAILY Nitrostat (Nitroglycerin) 0.4 Mg Tab.subl 0.4 Mg SL PRN Q5MIN PRN Metronidazole 500 Mg Tablet 500 Mg PO TID Metoclopramide Hcl 10 Mg Tablet 10 Mg PO BIDAC Isosorbide Mononitrate Er (Isosorbide Mononitrate) 30 Mg Tab.er.24h 30 Mg PO DAILY Ibuprofen 800 Mg Tablet 800 Mg PO PRN Q6HRS PRN Gabapentin (Gabapentin) 400 Mg Capsule 400 Mg PO TID Furosemide 40 Mg Tablet 40 Mg PO DAILY Fexofenadine Hcl 180 Mg Tablet 180 Mg PO DAILY Plavix (Clopidogrel Bisulfate) 75 Mg Tablet 75 Mg PO DAILY Ciprofloxacin Hcl 500 Mg Tablet 500 Mg PO BID Symbicort 160-4.5 Mcg Inhaler (Budesonide/Formoterol Fumarate) 10.2 Gm Hf a.aer.ad 1 Puff IH BID Atorvastatin Calcium 80 Mg Tablet 80 Mg PO DAILY Amlodipine Besylate 2.5 Mg Tablet 2.5 Mg PO DAILY Proair Hfa Inhaler (Albuterol Sulfate) 8.5 Gm Hfa.aer.ad 1 Puff INH PRN Q6HRS PRN Aspirin 81 Mg Tab.chew Unknown Dose PO Tramadol Hcl 50 Mg Tablet Unknown Dose PO Q6HRS PRN Zetia (Ezetimibe) 10 Mg Tablet Unknown Dose PO DAILY Novolog (Insulin Aspart) 100 Unit/1 Ml Cartridge Unknown Dose SQ Toprol Xl (Metoprolol Succinate) 25 Mg Tab.er.24h Unknown Dose PO DAILY Allergies Allergies: Coded Allergies: Fish Containing Products (Unverified Allergy, Intermediate, 03/18/16) Iodinated Contrast Media (Verified Allergy, Intermediate, 03/18/16) codeine (Unverified Allergy, Intermediate, 03/18/16) fenofibrate (Unverified Allergy, Intermediate, 03/18/16) lisinopril (Unverified Allergy, Intermediate, 03/18/16) losartan (Unverified Allergy, Intermediate, 03/18/16) niacin (Unverified Allergy, Intermediate, 03/18/16) nifedipine (Unverified Allergy, Intermediate, 03/18/16) procaine (Unverified Allergy, Intermediate, 03/18/16) rosuvastatin (Unverified Allergy, Intermediate, 03/18/16) spironolactone (Unverified Allergy, Intermediate, 03/18/16) Uncoded Allergies: SEAFOOD (Allergy, Unknown, 03/18/16) Vitals VITALS Vital Signs Date Time Temp Pulse Resp B/P (MAP) Pulse Ox O2 Delivery O2 Flow Rate FiO2 02/17/19 15:44 30 91 Nasal Cannula 4.0 02/17/19 14:42 84 129/62 02/17/19 09:42 98.3 98.3 Labs Labs Laboratory Tests Test 02/17/19 11:45 White Blood Count 10.8 x10^3/uL (4.0-11.0) Red Blood Count 3.51 x10^6/uL (4.30-5.70) Hemoglobin 8.7 g/dL (13.0-17.5) Hematocrit 26.2 % (39.0-53.0) Mean Corpuscular Volume 75 fL (79-100) Mean Corpuscular Hemoglobin 25 pg (25-35) Mean Corpuscular Hemoglobin Concent 33 g/dL (31-37) Red Cell Distribution Width 18.7 % (11.5-14.5) Platelet Count 261 x10^3/uL (140-400) Sodium Level 142 mmol/L (136-145) Potassium Level 5.0 mmol/L (3.5-5.1) Chloride Level 101 mmol/L (98-107) Carbon Dioxide Level 33 mmol/L (21-32) Anion Gap 8 (6-14) Blood Urea Nitrogen 23 mg/dL (8-26) Creatinine 1.8 mg/dL (0.7-1.3) Estimated GFR (Cockcroft-Gault) 37.8 BUN/Creatinine Ratio 13 (6-20) Glucose Level 152 mg/dL (70-99) Calcium Level 8.9 mg/dL (8.5-10.1) Total Bilirubin 0.7 mg/dL (0.2-1.0) Aspartate Amino Transf (AST/SGOT) 56 U/L (15-37) Alanine Aminotransferase (ALT/SGPT) 13 U/L (16-63) Alkaline Phosphatase 132 U/L (46-116) Troponin I Quantitative 14.972 ng/mL (0.000-0.055) Total Protein 7.1 g/dL (6.4-8.2) Albumin 3.2 g/dL (3.4-5.0) Albumin/Globulin Ratio 0.8 (1.0-1.7) Laboratory Tests Test 02/17/19 11:45 White Blood Count 10.8 x10^3/uL (4.0-11.0) Red Blood Count 3.51 x10^6/uL (4.30-5.70) Hemoglobin 8.7 g/dL (13.0-17.5) Hematocrit 26.2 % (39.0-53.0) Mean Corpuscular Volume 75 fL (79-100) Mean Corpuscular Hemoglobin 25 pg (25-35) Mean Corpuscular Hemoglobin Concent 33 g/dL (31-37) Red Cell Distribution Width 18.7 % (11.5-14.5) Platelet Count 261 x10^3/uL (140-400) Sodium Level 142 mmol/L (136-145) Potassium Level 5.0 mmol/L (3.5-5.1) Chloride Level 101 mmol/L (98-107) Carbon Dioxide Level 33 mmol/L (21-32) Anion Gap 8 (6-14) Blood Urea Nitrogen 23 mg/dL (8-26) Creatinine 1.8 mg/dL (0.7-1.3) Estimated GFR (Cockcroft-Gault) 37.8 BUN/Creatinine Ratio 13 (6-20) Glucose Level 152 mg/dL (70-99) Calcium Level 8.9 mg/dL (8.5-10.1) Total Bilirubin 0.7 mg/dL (0.2-1.0) Aspartate Amino Transf (AST/SGOT) 56 U/L (15-37) Alanine Aminotransferase (ALT/SGPT) 13 U/L (16-63) Alkaline Phosphatase 132 U/L (46-116) Troponin I Quantitative 14.972 ng/mL (0.000-0.055) Total Protein 7.1 g/dL (6.4-8.2) Albumin 3.2 g/dL (3.4-5.0) Albumin/Globulin Ratio 0.8 (1.0-1.7) FEDERICO NORRIS MD Feb 17, 2019 16:41
[2019-02-17] MEDS ORDERED: DEXTROSE 50% 25 GM / 50ML DISP.SYRIN. IV PRN (18:15)
[2019-02-17] MEDS ORDERED: HEPARIN 25,000UTS/500ML PREMIX 500 ML IV ONE (19:28)
[2019-02-17] MEDS ORDERED: HEPARIN 25,000UTS/500ML PREMIX 500 ML IV SCH (20:00)
[2019-02-17] MEDS ORDERED: HEPARIN 25,000UTS/500ML PREMIX 500 ML IV PRN (20:00)
[2019-02-17] MEDS ORDERED: HEPARIN for IV BOLUS 10,000 UNIT/10 ML VIAL. ONE (20:02)
[2019-02-17] MEDS ORDERED: HEPARIN for IV BOLUS 10,000 UNIT/10 ML VIAL. IV PRN (20:15)
[2019-02-17] MEDS: ATORVASTATIN CALCIUM 40 MG TABLET. PO SCH (22:09)
[2019-02-18] VITALS (27 sets, daily range): BP systolic 108–154; BP diastolic 50–79
[2019-02-18 05:42] LABS: BASO # 0.1 x10^3/uL (0.0-0.2); BASO % 1 % (0-3); EOS % 10 % (0-3); HEMOGLOBIN 8.7 g/dL (13.0-17.5); LYMPH # 1.2 x10^3/uL (1.0-4.8); LYMPH % 12 % (24-48); MEAN CORPUSCULAR HEMOGLOBIN 24 pg (25-35); MEAN CORPUSCULAR HGB CONC 32 g/dL (31-37); MEAN CORPUSCULAR VOLUME 75 fL (79-100); MONO # 0.8 x10^3/uL (0.0-1.1); MONO % 7 % (0-9); NEUT # 7.1 x10^3/uL (1.8-7.7); NEUT % 70 % (31-73); PLATELET COUNT 272 x10^3/uL (140-400); RED BLOOD COUNT 3.58 x10^6/uL (4.30-5.70); RED CELL DISTRIBUTION WIDTH 18.9 % (11.5-14.5); WHITE BLOOD COUNT 10.3 x10^3/uL (4.0-11.0)
[2019-02-18 05:53] LABS: ALBUMIN 2.8 g/dL (3.4-5.0); ALBUMIN/GLOBULIN RATIO 0.6 (1.0-1.7); CREATININE 1.5 mg/dL (0.7-1.3); GFR 46.7; POTASSIUM 4.6 mmol/L (3.5-5.1); TOTAL BILIRUBIN 0.7 mg/dL (0.2-1.0); TOTAL PROTEIN 7.2 g/dL (6.4-8.2)
[2019-02-18 06:10] LABS: CHOLESTEROL/HDL RATIO 3.7
[2019-02-18] MEDS ORDERED: methylPREDNISolone SOD SUCC PF 125 MG/2 ML VIAL. IV ONE ×2 (07:45→12:00)
[2019-02-18] MEDS ORDERED: diphenhydrAMINE 50 MG/ML VIAL IM ONE ×2 (07:45→12:00)
[2019-02-18] MEDS ORDERED: FAMOTIDINE 20 MG/2 ML VIAL IVP ONE (07:45)
[2019-02-18] MEDS: INSULIN LISPRO 300 UNITS/3 ML VIAL. SQ SCH ×4 (08:00→21:05)
[2019-02-18] MEDS ORDERED: MAGNESIUM SULFATE 2GM 50 ML IV PRN (08:45)
--- NOTE | 2019-02-18 08:46 | PDOC2 ---
CONSULT Date of Consult Date of Consult DATE: 02/18/19 TIME: 08:23 Reason for Consult Reason for Consult: Chronic renal insufficiency Referring Physician Referring Physician: Néstor Identification/Chief Complaint Chief Complaint Chest pain Source Source: Chart review, Patient History of Present Illness Reason for Visit: Mr. Olvera is a pleasant 68-year-old obese gentleman with history of diabetes for almost 10 years. He is also noted to have early nonproliferative diabetic retinopathy based on his [facility] records. He is aware of occasional abnormal creatinines which [facility]. Creatinines have been running anywhere from 1.3-1.6 in the recent past. He had an episode of worsening edema in his lower extremities which has required him to be on Lasix in the recent past. His echocardiograms reports from the [facility] shows preserved EF. He is also noted to have iron deficiency anemia. Patient was following up with Dr. Smith, his strategic partnership specialist at the [facility] and was noted to have ongoing chest pain and worsening shortness of breath. He was hence made a direct admit to our ICU where he is noted to have angina until yesterday afternoon when it finally resolved. He is on a heparin drip currently. His troponins have been trending higher and it is felt that he will need a heart catheterization for further evaluation of the same. A Urban catheter has been placed and he has had significant amount of urine output. He is known to have some prostate issues and sees a urologist at the [facility]. His been evaluated by hematology for his anemia. He is noted to have iron saturations of 10% currently. He does occasionally take NSAIDs, denies fevers chills nausea vomiting diarrhea constipation, phlegm sputum production, dysuria. Does have urinary difficulty at times. Past Medical History Cardiovascular: CAD, HTN, MS, Hyperlipidemia, Aortic stenosis Pulmonary: COPD, Other (LUNA) GI: GERD, Peptic Ulcer disease Psych: Anxiety Musculoskeletal: Osteoarthritis Renal/: Chronic renal insuff, Benign prostatic enlarg. Endocrine: Diabetes Past Surgical History Past Surgical History: Cholecystectomy, CABG, Cataract Removal, Total knee replacement Family History Family History: Cancer, Diabetes, Hypertension, Other (denies history of renal problems in the family) Social History Quit (last week) ALCOHOL: occassional Drugs: None Lives: with Family Current Medications Current Medications Current Medications Clopidogrel Bisulfate (Plavix) 75 mg DAILY PO Last administered on 02/17/19at 14:43; Start 02/17/19 at 13:00; Stop 02/17/19 at 14:41; Status DC Isosorbide Mononitrate (Imdur) 30 mg DAILY PO Last administered on 02/17/19at 14:42; Start 02/17/19 at 13:00 Ranolazine (Ranexa) 500 mg BID PO Last administered on 02/17/19at 22:10; Start 02/17/19 at 13:00 Atorvastatin Calcium (Lipitor) 80 mg QHS PO Last administered on 02/17/19at 22:09; Start 02/17/19 at 21:00 Metoprolol Tartrate (Lopressor) 50 mg BID PO Last administered on 02/17/19at 22:13; Start 02/17/19 at 13:00 Nitroglycerin (Nitrostat) 0.4 mg STK-MED ONCE SL ; Start 02/17/19 at 15:29; Stop 02/17/19 at 15:29; Status DC Morphine Sulfate (Morphine Sulfate) 2 mg PRN Q2HR PRN IV PAIN Last administered on 02/17/19at 19:51; Start 02/17/19 at 15:30 Nitroglycerin (Nitrostat) 0.4 mg PRN Q5MIN PRN SL CHEST PAIN; Start 02/17/19 at 15:30 Morphine Sulfate (Morphine Sulfate) 2 mg PRN Q2HR PRN IV PAIN; Start 02/17/19 at 15:30; Status UNV Insulin Human Lispro (HumaLOG) 0-9 UNITS TIDWMEALS SQ ; Start 02/18/19 at 08:00 Dextrose (Dextrose 50%-Water Syringe) 12.5 gm PRN Q15MIN PRN IV SEE COMMENTS; Start 02/17/19 at 18:15 Heparin Sodium/ Dextrose 500 ml @ As Directed STK-MED ONCE IV ; Start 02/17/19 at 19:28; Stop 02/17/19 at 19:28; Status DC Heparin Sodium/ Dextrose 500 ml @ 0 mls/hr CONT PRN IV . Last administered on 02/17/19at 20:04; Start 02/17/19 at 20:00 Heparin Sodium/ Dextrose 500 ml @ 0 mls/hr CONT IV ; Start 02/17/19 at 20:00; Status UNV Heparin Sodium (Porcine) (Heparin Sodium) 10,000 unit STK-MED ONCE .ROUTE ; Start 02/17/19 at 20:02; Stop 02/17/19 at 20:02; Status DC Heparin Sodium (Porcine) (Heparin Sodium) 3,100 unit PRN Q6HRS PRN IV FOR UFH LEVEL LESS THAN 0.2 Last administered on 02/17/19at 20:11; Start 02/17/19 at 20:15 Diphenhydramine HCl (Benadryl) 25 mg 1X ONCE IM ; Start 02/18/19 at 07:45; Stop 02/18/19 at 07:49; Status DC Famotidine (Pepcid Vial) 20 mg 1X ONCE IVP ; Start 02/18/19 at 07:45; Stop 02/18/19 at 07:49; Status DC Methylprednisolone Sodium Succinate (SOLU-Medrol 125MG VIAL) 125 mg 1X ONCE IV ; Start 02/18/19 at 07:45; Stop 02/18/19 at 07:49; Status DC Active Scripts Active Reported Novolog Flexpen (Insulin Aspart) 100 Unit/1 Ml Insuln.pen 10 Unit SQ TIDAC Lantus Solostar (Insulin Glargine,Hum.rec.anlog) 100 Unit/1 Ml Insuln.pen 35 Unit SQ QHS Hydrophilic Ointment 410 Gm Oint...g. 410 Gm TP PRN BID Tylenol Extra Strength (Acetaminophen) 500 Mg Tablet 500 Mg PO PRN Q8HRS PRN Metformin Hcl 1,000 Mg Tablet 1,000 Mg PO BIDWMEALS Lidocaine-Prilocaine Cream (Lidocaine/Prilocaine) 30 Gm Cream..g. 1 Surinder TP UD PRN Lidocaine PATCH (Lidocaine) 1 Each Adh..patch 1 Each TP DAILY REMOVE AFTER 12 HOURS Refresh Optive Eye Drops (Carboxymethylcellulos/Glycerin) 15 Ml Drops 1 Drop EACHEYE QID Tramadol Hcl 50 Mg Tablet Unknown Dose PO Q6HRS PRN Spiriva (Tiotropium [place]) 18 Mcg Cap.w.dev 2 Inh IH DAILY Tamsulosin Hcl 0.4 Mg Cap.er.24h Unknown Dose PO DAILY Ranexa (Ranolazine) 500 Mg Tab.er.12h 500 Mg PO Protonix (Pantoprazole Sodium) 20 Mg Tablet.dr 20 Mg PO DAILY Nitrostat (Nitroglycerin) 0.4 Mg Tab.subl 0.4 Mg SL PRN Q5MIN PRN Metronidazole 500 Mg Tablet 500 Mg PO TID Metoclopramide Hcl 10 Mg Tablet 10 Mg PO BIDAC Isosorbide Mononitrate Er (Isosorbide Mononitrate) 30 Mg Tab.er.24h 30 Mg PO DAILY Ibuprofen 800 Mg Tablet 800 Mg PO PRN Q6HRS PRN Gabapentin (Gabapentin) 400 Mg Capsule 400 Mg PO TID Furosemide 40 Mg Tablet 40 Mg PO DAILY Fexofenadine Hcl 180 Mg Tablet 180 Mg PO DAILY Plavix (Clopidogrel Bisulfate) 75 Mg Tablet 75 Mg PO DAILY Ciprofloxacin Hcl 500 Mg Tablet 500 Mg PO BID Symbicort 160-4.5 Mcg Inhaler (Budesonide/Formoterol Fumarate) 10.2 Gm Hfa.aer.ad 1 Puff IH BID Atorvastatin Calcium 80 Mg Tablet 80 Mg PO DAILY Amlodipine Besylate 2.5 Mg Tablet 2.5 Mg PO DAILY Proair Hfa Inhaler (Albuterol Sulfate) 8.5 Gm Hfa.aer.ad 1 Puff INH PRN Q6HRS PRN Aspirin 81 Mg Tab.chew Unknown Dose PO Tramadol Hcl 50 Mg Tablet Unknown Dose PO Q6HRS PRN Zetia (Ezetimibe) 10 Mg Tablet Unknown Dose PO DAILY Novolog (Insulin Aspart) 100 Unit/1 Ml Cartridge Unknown Dose SQ Toprol Xl (Metoprolol Succinate) 25 Mg Tab.er.24h Unknown Dose PO DAILY Allergies Allergies: Coded Allergies: Fish Containing Products (Unverified Allergy, Intermediate, 03/18/16) Iodinated Contrast Media (Verified Allergy, Intermediate, 03/18/16) codeine (Unverified Allergy, Intermediate, 03/18/16) fenofibrate (Unverified Allergy, Intermediate, 03/18/16) lisinopril (Unverified Allergy, Intermediate, 03/18/16) losartan (Unverified Allergy, Intermediate, 03/18/16) niacin (Unverified Allergy, Intermediate, 03/18/16) nifedipine (Unverified Allergy, Intermediate, 03/18/16) procaine (Unverified Allergy, Intermediate, 03/18/16) rosuvastatin (Unverified Allergy, Intermediate, 03/18/16) shellfish derived (Verified Allergy, Intermediate, 02/18/19) spironolactone (Unverified Allergy, Intermediate, 03/18/16) ROS Review of System 14 point review of systems conducted with the patient is negative other than for positives as mentioned in the history of present illness Physical Exam Physical Exam General Appearance: Awake Alert Oriented x 3 In no current visilbe Distress Eyes: VIsion Unchanged Conjunctiva Normal EN: No EN Drainage Mucous Memb. moist Neck: no JVD no JVP Supple no Thyromegaly, thick neck CVS: S1 S2 + Murmur No Gallop No Rub no Edema, febrile peripheral pulses Resp: no Rales no Rhonchi no Acc. Muscle use GI: BS +ve NO Bruit Non Tender Non Distended, obese abdomen : no CVA tenderness; no Suprapubic Tenderness SKIN: No visible Rashes Breast Exam deferred Mu.Sk: Adequate ROM minimal small Muscle Atrophy in hands and feet Heme: Unable to palpate Obvious LAD no palpable Splenomegaly NEURO: Good Strength and Tone Cranial Nerves II - XII grossly intact Psych: Not overtly Depressed no Active hallucination Vital Signs Vital Signs Date Time Temp Pulse Resp B/P (MAP) Pulse Ox O2 Delivery O2 Flow Rate FiO2 02/18/19 06:00 69 32 121/60 (80) 98 BiPAP/CPAP 02/18/19 04:00 98.9 98.9 02/18/19 04:00 5.0 Assessment & Plan ARF: Possible bladder outlet obstruction cannot be ruled out. Urban catheter in place and urine output is good Current FLuid and E-lyte status does not necessitate emergent need for Dialysis. Creatinine was 1.8 at presentation which is little higher than his usual baseline is now corrected to 1.5. Lasix. Underlying chronic kidney disease with baseline creatinine of 1.3 to 1.6 cannot be ruled out. This history of edema: Unclear etiology we'll check UA to rule out proteinuria. He does have low albumin at 2.8 suggesting possible underlying nephrotic state/syndrome Anemia: We'll defer this to oncology. Appears to be iron deficient HTN: Current BP meds reviewed. We'll await left heart catheter and will need optimization of medical management thereafter. Non-STEMI: Discussed with patient regarding small risk of worsening creatinine from contrast nephropathy. IV fluids have been started for prehydration Shortness of breath at presentation: Unclear to me if patient has pulmonary edema. Chest x-ray will be checked. Possible peripheral vascular disease will need evaluation down the road Discussed Plan of Care and prognosis etc. at length with patient and ICU nurse Labs Labs Laboratory Tests Test 02/17/19 11:45 02/17/19 17:06 02/17/19 18:10 02/17/19 22:18 White Blood Count 10.8 x10^3/uL (4.0-11.0) Red Blood Count 3.51 x10^6/uL (4.30-5.70) 3.63 x10^6/uL (4.30-5.70) Hemoglobin 8.7 g/dL (13.0-17.5) Hematocrit 26.2 % (39.0-53.0) Mean Corpuscular Volume 75 fL (79-100) Mean Corpuscular Hemoglobin 25 pg (25-35) Mean Corpuscular Hemoglobin Concent 33 g/dL (31-37) Red Cell Distribution Width 18.7 % (11.5-14.5) Platelet Count 261 x10^3/uL (140-400) Sodium Level 142 mmol/L (136-145) Potassium Level 5.0 mmol/L (3.5-5.1) Chloride Level 101 mmol/L (98-107) Carbon Dioxide Level 33 mmol/L (21-32) Anion Gap 8 (6-14) Blood Urea Nitrogen 23 mg/dL (8-26) Creatinine 1.8 mg/dL (0.7-1.3) Estimated GFR (Cockcroft-Gault) 37.8 BUN/Creatinine Ratio 13 (6-20) Glucose Level 152 mg/dL (70-99) Calcium Level 8.9 mg/dL (8.5-10.1) Total Bilirubin 0.7 mg/dL (0.2-1.0) Aspartate Amino Transf (AST/SGOT) 56 U/L (15-37) Alanine Aminotransferase (ALT/SGPT) 13 U/L (16-63) Alkaline Phosphatase 132 U/L (46-116) Troponin I Quantitative 14.972 ng/mL (0.000-0.055) 22.158 ng/mL (0.000-0.055) Total Protein 7.1 g/dL (6.4-8.2) Albumin 3.2 g/dL (3.4-5.0) Albumin/Globulin Ratio 0.8 (1.0-1.7) Glucose (Fingerstick) 185 mg/dL (70-99) 198 mg/dL (70-99) Absolute Reticulocyte Count 0.108 x10^6/uL (0.020-0.120) Percent Reticulocyte Count 3.0 % (0.5-2.3) Immature Reticulocyte Fraction 0.51 (0.20-0.60) Heparin Anti-Xa Act, Unfractionated 0.11 IU/mL (0.30-0.70) Iron Level 31 ug/dL (65-175) Total Iron Binding Capacity 310 ug/dL (250-450) Iron Saturation 10 % (15-34) Ferritin 245 ng/mL (26-388) Vitamin B12 Level 194 pg/mL (247-911) Test 02/18/19 01:18 02/18/19 05:15 02/18/19 07:00 Heparin Anti-Xa Act, Unfractionated 0.33 IU/mL (0.30-0.70) 0.22 IU/mL (0.30-0.70) White Blood Count 10.3 x10^3/uL (4.0-11.0) Red Blood Count 3.58 x10^6/uL (4.30-5.70) Hemoglobin 8.7 g/dL (13.0-17.5) Hematocrit 27.0 % (39.0-53.0) Mean Corpuscular Volume 75 fL (79-100) Mean Corpuscular Hemoglobin 24 pg (25-35) Mean Corpuscular Hemoglobin Concent 32 g/dL (31-37) Red Cell Distribution Width 18.9 % (11.5-14.5) Platelet Count 272 x10^3/uL (140-400) Neutrophils (%) (Auto) 70 % (31-73) Lymphocytes (%) (Auto) 12 % (24-48) Monocytes (%) (Auto) 7 % (0-9) Eosinophils (%) (Auto) 10 % (0-3) Basophils (%) (Auto) 1 % (0-3) Neutrophils # (Auto) 7.1 x10^3/uL (1.8-7.7) Lymphocytes # (Auto) 1.2 x10^3/uL (1.0-4.8) Monocytes # (Auto) 0.8 x10^3/uL (0.0-1.1) Eosinophils # (Auto) 1.0 x10^3/uL (0.0-0.7) Basophils # (Auto) 0.1 x10^3/uL (0.0-0.2) Sodium Level 141 mmol/L (136-145) Potassium Level 4.6 mmol/L (3.5-5.1) Chloride Level 100 mmol/L (98-107) Carbon Dioxide Level 33 mmol/L (21-32) Anion Gap 8 (6-14) Blood Urea Nitrogen 20 mg/dL (8-26) Creatinine 1.5 mg/dL (0.7-1.3) Estimated GFR (Cockcroft-Gault) 46.7 BUN/Creatinine Ratio 13 (6-20) Glucose Level 180 mg/dL (70-99) Calcium Level 9.0 mg/dL (8.5-10.1) Total Bilirubin 0.7 mg/dL (0.2-1.0) Aspartate Amino Transf (AST/SGOT) 49 U/L (15-37) Alanine Aminotransferase (ALT/SGPT) 12 U/L (16-63) Alkaline Phosphatase 112 U/L (46-116) Total Protein 7.2 g/dL (6.4-8.2) Albumin 2.8 g/dL (3.4-5.0) Albumin/Globulin Ratio 0.6 (1.0-1.7) Triglycerides Level 120 mg/dL (0-150) Cholesterol Level 107 mg/dL (0-200) LDL Cholesterol, Calculated 54 mg/dL (0-100) VLDL Cholesterol, Calculated 24 mg/dL (0-40) Non-HDL Cholesterol Calculated 78 mg/dL (0-129) HDL Cholesterol 29 mg/dL (40-60) Cholesterol/HDL Ratio 3.7 Laboratory Tests Test 02/17/19 11:45 02/17/19 17:06 02/17/19 18:10 02/17/19 22:18 White Blood Count 10.8 x10^3/uL (4.0-11.0) Red Blood Count 3.51 x10^6/uL (4.30-5.70) 3.63 x10^6/uL (4.30-5.70) Hemoglobin 8.7 g/dL (13.0-17.5) Hematocrit 26.2 % (39.0-53.0) Mean Corpuscular Volume 75 fL (79-100) Mean Corpuscular Hemoglobin 25 pg (25-35) Mean Corpuscular Hemoglobin Concent 33 g/dL (31-37) Red Cell Distribution Width 18.7 % (11.5-14.5) Platelet Count 261 x10^3/uL (140-400) Sodium Level 142 mmol/L (136-145) Potassium Level 5.0 mmol/L (3.5-5.1) Chloride Level 101 mmol/L (98-107) Carbon Dioxide Level 33 mmol/L (21-32) Anion Gap 8 (6-14) Blood Urea Nitrogen 23 mg/dL (8-26) Creatinine 1.8 mg/dL (0.7-1.3) Estimated GFR (Cockcroft-Gault) 37.8 BUN/Creatinine Ratio 13 (6-20) Glucose Level 152 mg/dL (70-99) Calcium Level 8.9 mg/dL (8.5-10.1) Total Bilirubin 0.7 mg/dL (0.2-1.0) Aspartate Amino Transf (AST/SGOT) 56 U/L (15-37) Alanine Aminotransferase (ALT/SGPT) 13 U/L (16-63) Alkaline Phosphatase 132 U/L (46-116) Troponin I Quantitative 14.972 ng/mL (0.000-0.055) 22.158 ng/mL (0.000-0.055) Total Protein 7.1 g/dL (6.4-8.2) Albumin 3.2 g/dL (3.4-5.0) Albumin/Globulin Ratio 0.8 (1.0-1.7) Glucose (Fingerstick) 185 mg/dL (70-99) 198 mg/dL (70-99) Absolute Reticulocyte Count 0.108 x10^6/uL (0.020-0.120) Percent Reticulocyte Count 3.0 % (0.5-2.3) Immature Reticulocyte Fraction 0.51 (0.20-0.60) Heparin Anti-Xa Act, Unfractionated 0.11 IU/mL (0.30-0.70) Iron Level 31 ug/dL (65-175) Total Iron Binding Capacity 310 ug/dL (250-450) Iron Saturation 10 % (15-34) Ferritin 245 ng/mL (26-388) Vitamin B12 Level 194 pg/mL (247-911) Test 02/18/19 01:18 02/18/19 05:15 02/18/19 07:00 Heparin Anti-Xa Act, Unfractionated 0.33 IU/mL (0.30-0.70) 0.22 IU/mL (0.30-0.70) White Blood Count 10.3 x10^3/uL (4.0-11.0) Red Blood Count 3.58 x10^6/uL (4.30-5.70) Hemoglobin 8.7 g/dL (13.0-17.5) Hematocrit 27.0 % (39.0-53.0) Mean Corpuscular Volume 75 fL (79-100) Mean Corpuscular Hemoglobin 24 pg (25-35) Mean Corpuscular Hemoglobin Concent 32 g/dL (31-37) Red Cell Distribution Width 18.9 % (11.5-14.5) Platelet Count 272 x10^3/uL (140-400) Neutrophils (%) (Auto) 70 % (31-73) Lymphocytes (%) (Auto) 12 % (24-48) Monocytes (%) (Auto) 7 % (0-9) Eosinophils (%) (Auto) 10 % (0-3) Basophils (%) (Auto) 1 % (0-3) Neutrophils # (Auto) 7.1 x10^3/uL (1.8-7.7) Lymphocytes # (Auto) 1.2 x10^3/uL (1.0-4.8) Monocytes # (Auto) 0.8 x10^3/uL (0.0-1.1) Eosinophils # (Auto) 1.0 x10^3/uL (0.0-0.7) Basophils # (Auto) 0.1 x10^3/uL (0.0-0.2) Sodium Level 141 mmol/L (136-145) Potassium Level 4.6 mmol/L (3.5-5.1) Chloride Level 100 mmol/L (98-107) Carbon Dioxide Level 33 mmol/L (21-32) Anion Gap 8 (6-14) Blood Urea Nitrogen 20 mg/dL (8-26) Creatinine 1.5 mg/dL (0.7-1.3) Estimated GFR (Cockcroft-Gault) 46.7 BUN/Creatinine Ratio 13 (6-20) Glucose Level 180 mg/dL (70-99) Calcium Level 9.0 mg/dL (8.5-10.1) Total Bilirubin 0.7 mg/dL (0.2-1.0) Aspartate Amino Transf (AST/SGOT) 49 U/L (15-37) Alanine Aminotransferase (ALT/SGPT) 12 U/L (16-63) Alkaline Phosphatase 112 U/L (46-116) Total Protein 7.2 g/dL (6.4-8.2) Albumin 2.8 g/dL (3.4-5.0) Albumin/Globulin Ratio 0.6 (1.0-1.7) Triglycerides Level 120 mg/dL (0-150) Cholesterol Level 107 mg/dL (0-200) LDL Cholesterol, Calculated 54 mg/dL (0-100) VLDL Cholesterol, Calculated 24 mg/dL (0-40) Non-HDL Cholesterol Calculated 78 mg/dL (0-129) HDL Cholesterol 29 mg/dL (40-60) Cholesterol/HDL Ratio 3.7 Review All relevant outside records, renal labs, imaging studies, telemetry/EKG's were reviewed. LENA GRIFFIN MD Feb 18, 2019 08:46
[2019-02-18] MEDS ORDERED: IV NORMAL SALINE 1000ML BAG 1,000 ML IV SCH (09:00)
--- NOTE | 2019-02-18 10:31 | RAD ---
Single view of the chest. 02/18/2019 12:00 AM Indication: Myocardial infarction Comparison: None Findings: The heart is mildly enlarged.. Central vascular congestion and possible mild interstitial edema noted. No pneumothorax or effusion is seen. Prior median sternotomy noted. Probable prior CABG surgery noted. Bony thorax is grossly intact. IMPRESSION: 1. Prior median sternotomy and likely CABG surgery. Cardiomegaly. 2. Central vascular congestion and mild interstitial edema Electronically signed by: Seth Keenan MD (02/18/2019 10:28 AM) [id number]
--- NOTE | 2019-02-18 10:51 | NUR ---
SS following for discharge planning. SS reviewed pt chart. Pt is from home with spouse and is currently requiring oxygen. Pt transferred from [facility]. SS will continue to follow for discharge planning.
--- NOTE | 2019-02-18 10:57 | RAD ---
RENAL COMPLETE BILATERAL History: Acute renal failure. Chronic kidney disease. Comparison: None. Procedure: Transabdominal ultrasound images are obtained of the kidneys and bladder. Findings: Right kidney: measures 11.4 x 5.6 x 5.0 cm. No hydronephrosis. Degraded evaluation of the right kidney due to overlying bowel gas. Left kidney: measures 13.2 x 6.6 x 6.7 cm. No hydronephrosis. Small left renal cyst within the mid kidney measures 8 x 9 mm. Urinary bladder: Decompressed urinary bladder with catheter in place. Nonaneurysmal proximal aorta. Mid and distal aorta not well seen due to overlying bowel gas. Patent IVC. IMPRESSION: 1. Small left renal cyst. 2. Otherwise, unremarkable renal ultrasound. Electronically signed by: Augusto Henriquez DO (02/18/2019 10:54 AM) [id number]
--- NOTE | 2019-02-18 11:08 | PDOC ---
Subjective: Subjective: No GI complaints, no bleeding. Objective: Objective: D/w nurse - some relief from chest pain overnight - discussion ongoing between cardiology and nephrology re: cath today. Reviewed heme/onc note. Vital Signs: Vital Signs Date Time Temp Pulse Resp B/P (MAP) Pulse Ox O2 Delivery O2 Flow Rate FiO2 02/18/19 09:00 70 130/60 (83) 94 Nasal Cannula 4.0 02/18/19 08:00 98.0 98.0 02/18/19 06:00 32 Labs: Laboratory Tests Test 02/17/19 11:45 02/17/19 17:06 02/17/19 18:10 02/17/19 22:18 White Blood Count 10.8 x10^3/uL Red Blood Count 3.51 x10^6/uL 3.63 x10^6/uL Hemoglobin 8.7 g/dL Hematocrit 26.2 % Mean Corpuscular Volume 75 fL Mean Corpuscular Hemoglobin 25 pg Mean Corpuscular Hemoglobin Concent 33 g/dL Red Cell Distribution Width 18.7 % Platelet Count 261 x10^3/uL Sodium Level 142 mmol/L Potassium Level 5.0 mmol/L Chloride Level 101 mmol/L Carbon Dioxide Level 33 mmol/L Anion Gap 8 Blood Urea Nitrogen 23 mg/dL Creatinine 1.8 mg/dL Estimated GFR (Cockcroft-Gault) 37.8 BUN/Creatinine Ratio 13 Glucose Level 152 mg/dL Calcium Level 8.9 mg/dL Total Bilirubin 0.7 mg/dL Aspartate Amino Transf (AST/SGOT) 56 U/L Alanine Aminotransferase (ALT/SGPT) 13 U/L Alkaline Phosphatase 132 U/L Troponin I Quantitative 14.972 ng/mL 22.158 ng/mL Total Protein 7.1 g/dL Albumin 3.2 g/dL Albumin/Globulin Ratio 0.8 Glucose (Fingerstick) 185 mg/dL 198 mg/dL Absolute Reticulocyte Count 0.108 x10^6/uL Percent Reticulocyte Count 3.0 % Immature Reticulocyte Fraction 0.51 Heparin Anti-Xa Act, Unfractionated 0.11 IU/mL Iron Level 31 ug/dL Total Iron Binding Capacity 310 ug/dL Iron Saturation 10 % Ferritin 245 ng/mL Vitamin B12 Level 194 pg/mL Test 02/18/19 01:18 02/18/19 05:15 02/18/19 07:00 Heparin Anti-Xa Act, Unfractionated 0.33 IU/mL 0.22 IU/mL White Blood Count 10.3 x10^3/uL Red Blood Count 3.58 x10^6/uL Hemoglobin 8.7 g/dL Hematocrit 27.0 % Mean Corpuscular Volume 75 fL Mean Corpuscular Hemoglobin 24 pg Mean Corpuscular Hemoglobin Concent 32 g/dL Red Cell Distribution Width 18.9 % Platelet Count 272 x10^3/uL Neutrophils (%) (Auto) 70 % Lymphocytes (%) (Auto) 12 % Monocytes (%) (Auto) 7 % Eosinophils (%) (Auto) 10 % Basophils (%) (Auto) 1 % Neutrophils # (Auto) 7.1 x10^3/uL Lymphocytes # (Auto) 1.2 x10^3/uL Monocytes # (Auto) 0.8 x10^3/uL Eosinophils # (Auto) 1.0 x10^3/uL Basophils # (Auto) 0.1 x10^3/uL Sodium Level 141 mmol/L Potassium Level 4.6 mmol/L Chloride Level 100 mmol/L Carbon Dioxide Level 33 mmol/L Anion Gap 8 Blood Urea Nitrogen 20 mg/dL Creatinine 1.5 mg/dL Estimated GFR (Cockcroft-Gault) 46.7 BUN/Creatinine Ratio 13 Glucose Level 180 mg/dL Calcium Level 9.0 mg/dL Total Bilirubin 0.7 mg/dL Aspartate Amino Transf (AST/SGOT) 49 U/L Alanine Aminotransferase (ALT/SGPT) 12 U/L Alkaline Phosphatase 112 U/L Creatine Kinase 309 U/L Total Protein 7.2 g/dL Albumin 2.8 g/dL Albumin/Globulin Ratio 0.6 Triglycerides Level 120 mg/dL Cholesterol Level 107 mg/dL LDL Cholesterol, Calculated 54 mg/dL VLDL Cholesterol, Calculated 24 mg/dL Non-HDL Cholesterol Calculated 78 mg/dL HDL Cholesterol 29 mg/dL Cholesterol/HDL Ratio 3.7 Imaging: Renal US 02/18 IMPRESSION: 1. Small left renal cyst. 2. Otherwise, unremarkable renal ultrasound. CXR 02/18 IMPRESSION: 1. Prior median sternotomy and likely CABG surgery. Cardiomegaly. 2. Central vascular congestion and mild interstitial edema. Echocardiogram <Conclusion> Limited study for LV function. The Left Ventricle is mildly dilated. The left ventricular systolic function is low normal. The Ejection Fraction is estimated at 50%. There is milld concentric left ventricular hypertrophy. There is a trace pericardial effusion with no hemodynamic significance. PE: GEN: NAD LUNGS: NC 4L HEART: RRR ABD: S/ND/NT NEURO/PSYCH: A & O 3 A/P: NSTEMI, resp failure, CAD, FREDDIE/CKD MARZENA, B12 deficiency - GERD, portal hypertensive gastropathy, colon polyps on 'scopes at [facility] last week -- PPI. Add B12 and iron. ?cath today ?path from [facility] SOPHIE-KALEY VARGAS Feb 18, 2019 11:07
[2019-02-18] MEDS: CYANOCOBALAMIN (VITAMIN B-12) 1,000 MCG/ML VIAL IM SCH (12:00)
[2019-02-18] MEDS: FERROUS SULFATE ORAL 300 MG/5 ML SOLUTION. PO SCH ×2 (12:00→18:25)
[2019-02-18] MEDS ORDERED: FAMOTIDINE 20 MG/2 ML VIAL ONE (12:11)
[2019-02-18] MEDS ORDERED: IODIXANOL 320 MG/ML 100 ML VIAL. ONE ×2 (12:19→12:54)
[2019-02-18] MEDS ORDERED: LIDOCAINE 1% PF 2 ML VIAL. ONE (12:19)
--- NOTE | 2019-02-18 12:33 | PDOC ---
[employer] PROGRESS NOTE Chief Complaint Chief Complaint Chest pain, NSTEMI History of Present Illness History of Present Illness This is a 68 yo male who transferred from the [facility] secondary to chest pain and elevated troponin. Patient follows with the [facility]. Has extensive cardiac history as noted below. Had routine visit with Dr. Smith a week and a half ago. Was SOA, slightly disoriented, and had mild chest pain. Was referred to the ED for further evaluation and treatment. Was admitted to the ICU. Hgb drifted from 12 range down to 7.4. Concerns for GI bleed. Underwent EGD and colonoscopy without any obvious bleeding per . Was discharge home with iron this past Friday. Bozrah well over the weekend. On Friday morning, legs were weak "felt like Jello" and had difficulty with speech. Had mild pain in his central chest and shortness of breath. Decided to go back to the ED at the [place]. Overnight, developed excruciating pain in his central chest. Describes as squeezing. Radiated down his left arm. Associated with nausea/vomiting, belching, and shortness of breath. Took nitro x4 without any significant relief. Was start on nitro and heparin gtt without any significant improvement. Was given IV morphine, which finally improved the pain. Trop was noted to be elevated, reportedly 6.5, and patient was transferred to [facility] for further evaluation and treatment. Presently CP free. 02/18: Patient seen and examined in ICU, patient is noted to be alert and oriented X3. Patient is currently on a heparin drip and is awaiting cardiac catheterization. Patient is currently wheezing upon lung auscultation. Vitals/I&O Vitals/I&O: Vital Signs Date Time Temp Pulse Resp B/P (MAP) Pulse Ox O2 Delivery O2 Flow Rate FiO2 02/18/19 09:00 70 130/60 (83) 94 Nasal Cannula 4.0 02/18/19 08:00 98.0 98.0 02/18/19 06:00 32 I & O 02/17/19 02/17/19 02/18/19 15:00 23:00 07:00 Intake Total 180 ml 300 ml 418 ml Output Total 1100 ml 970 ml 825 ml Balance -920 ml -670 ml -407 ml Physical Exam General: Alert, Oriented X3, Cooperative, No acute distress Heart: Regular rate, Other (distant heart tones ) Lungs: Wheezing Abdomen: Normal bowel sounds, Soft, No tenderness, No hepatosplenomegaly, Other (obese ) Extremities: No clubbing, No cyanosis, No edema, Normal pulses Skin: No rashes, No breakdown, No significant lesion Labs Labs: Laboratory Tests Test 02/17/19 17:06 02/17/19 18:10 02/17/19 22:18 02/18/19 01:18 Glucose (Fingerstick) 185 mg/dL (70-99) 198 mg/dL (70-99) Red Blood Count 3.63 x10^6/uL (4.30-5.70) Absolute Reticulocyte Count 0.108 x10^6/uL (0.020-0.120) Percent Reticulocyte Count 3.0 % (0.5-2.3) Immature Reticulocyte Fraction 0.51 (0.20-0.60) Heparin Anti-Xa Act, Unfractionated 0.11 IU/mL (0.30-0.70) 0.33 IU/mL (0.30-0.70) Iron Level 31 ug/dL (65-175) Total Iron Binding Capacity 310 ug/dL (250-450) Iron Saturation 10 % (15-34) Ferritin 245 ng/mL (26-388) Troponin I Quantitative 22.158 ng/mL (0.000-0.055) Vitamin B12 Level 194 pg/mL (247-911) Test 02/18/19 05:15 02/18/19 07:00 White Blood Count 10.3 x10^3/uL (4.0-11.0) Red Blood Count 3.58 x10^6/uL (4.30-5.70) Hemoglobin 8.7 g/dL (13.0-17.5) Hematocrit 27.0 % (39.0-53.0) Mean Corpuscular Volume 75 fL (79-100) Mean Corpuscular Hemoglobin 24 pg (25-35) Mean Corpuscular Hemoglobin Concent 32 g/dL (31-37) Red Cell Distribution Width 18.9 % (11.5-14.5) Platelet Count 272 x10^3/uL (140-400) Neutrophils (%) (Auto) 70 % (31-73) Lymphocytes (%) (Auto) 12 % (24-48) Monocytes (%) (Auto) 7 % (0-9) Eosinophils (%) (Auto) 10 % (0-3) Basophils (%) (Auto) 1 % (0-3) Neutrophils # (Auto) 7.1 x10^3/uL (1.8-7.7) Lymphocytes # (Auto) 1.2 x10^3/uL (1.0-4.8) Monocytes # (Auto) 0.8 x10^3/uL (0.0-1.1) Eosinophils # (Auto) 1.0 x10^3/uL (0.0-0.7) Basophils # (Auto) 0.1 x10^3/uL (0.0-0.2) Sodium Level 141 mmol/L (136-145) Potassium Level 4.6 mmol/L (3.5-5.1) Chloride Level 100 mmol/L (98-107) Carbon Dioxide Level 33 mmol/L (21-32) Anion Gap 8 (6-14) Blood Urea Nitrogen 20 mg/dL (8-26) Creatinine 1.5 mg/dL (0.7-1.3) Estimated GFR (Cockcroft-Gault) 46.7 BUN/Creatinine Ratio 13 (6-20) Glucose Level 180 mg/dL (70-99) Calcium Level 9.0 mg/dL (8.5-10.1) Total Bilirubin 0.7 mg/dL (0.2-1.0) Aspartate Amino Transf (AST/SGOT) 49 U/L (15-37) Alanine Aminotransferase (ALT/SGPT) 12 U/L (16-63) Alkaline Phosphatase 112 U/L (46-116) Creatine Kinase 309 U/L (39-308) Total Protein 7.2 g/dL (6.4-8.2) Albumin 2.8 g/dL (3.4-5.0) Albumin/Globulin Ratio 0.6 (1.0-1.7) Triglycerides Level 120 mg/dL (0-150) Cholesterol Level 107 mg/dL (0-200) LDL Cholesterol, Calculated 54 mg/dL (0-100) VLDL Cholesterol, Calculated 24 mg/dL (0-40) Non-HDL Cholesterol Calculated 78 mg/dL (0-129) HDL Cholesterol 29 mg/dL (40-60) Cholesterol/HDL Ratio 3.7 Heparin Anti-Xa Act, Unfractionated 0.22 IU/mL (0.30-0.70) Review of Systems Review of Systems: Patient complains of wheezing, patient denies weakness Assessment and Plan Assessmemt and Plan Assessment: Chest pain and elevated troponin, NSTEMI. Plan: 1. ICU monitoring 2. Cardiac catheterization pending today 3. continue heparin drip 4. DVT prophylaxis 5. Full code Total time 31 min Comment Review of Relevant I have reviewed the following items mildred (where applicable) has been applied. Medications: Current Medications Medications (Trade) Dose Ordered Sig/Mejia Route PRN Reason Start Time Stop Time Status Last Admin Dose Admin Clopidogrel Bisulfate (Plavix) 75 mg DAILY PO 02/17/19 13:00 02/17/19 14:41 DC 02/17/19 14:43 Isosorbide Mononitrate (Imdur) 30 mg DAILY PO 02/17/19 13:00 02/17/19 14:42 Ranolazine (Ranexa) 500 mg BID PO 02/17/19 13:00 02/17/19 22:10 Atorvastatin Calcium (Lipitor) 80 mg QHS PO 02/17/19 21:00 02/17/19 22:09 Metoprolol Tartrate (Lopressor) 50 mg BID PO 02/17/19 13:00 02/17/19 22:13 Morphine Sulfate (Morphine Sulfate) 2 mg PRN Q2HR PRN IV PAIN 02/17/19 15:30 02/17/19 19:51 Heparin Sodium/ Dextrose 500 ml @ 0 mls/hr CONT PRN IV . 02/17/19 20:00 02/17/19 20:04 Heparin Sodium (Porcine) (Heparin Sodium) 3,100 unit PRN Q6HRS PRN IV FOR UFH LEVEL LESS THAN 0.2 02/17/19 20:15 02/17/19 20:11 Famotidine (Pepcid Vial) 20 mg 1X ONCE IVP 02/18/19 07:45 02/18/19 07:49 DC 02/18/19 12:17 Magnesium Sulfate 50 ml @ 25 mls/hr PRN DAILY PRN IV for Mag < 1.7 on am labs 02/18/19 08:45 02/18/19 12:06 Diphenhydramine HCl (Benadryl) 25 mg 1X ONCE IM 02/18/19 12:00 02/18/19 12:01 DC 02/18/19 12:02 Methylprednisolone Sodium Succinate (SOLU-Medrol 125MG VIAL) 125 mg 1X ONCE IV 02/18/19 12:00 02/18/19 12:01 DC 02/18/19 12:01 ROSHAN SHERWOOD III DO Feb 18, 2019 12:33
[2019-02-18] MEDS ORDERED: fentaNYL PF VIAL 100 MCG/2 ML VIAL ONE (12:43)
[2019-02-18] MEDS ORDERED: MIDAZOLAM HCL/PF 2 MG/2 ML VIAL. ONE (12:43)
[2019-02-18] MEDS ORDERED: LIDOCAINE 1% Multi-Dose 20 ML VIAL. ONE (12:49)
[2019-02-18] MEDS ORDERED: IODIXANOL 320 MG/ML 100 ML VIAL. IART ONE (13:00)
[2019-02-18] MEDS ORDERED: LIDOCAINE 1% Multi-Dose 20 ML VIAL. INJ ONE (13:00)
[2019-02-18] MEDS ORDERED: fentaNYL PF VIAL 100 MCG/2 ML VIAL IV ONE (13:00)
[2019-02-18] MEDS ORDERED: MIDAZOLAM HCL/PF 2 MG/2 ML VIAL. IV ONE (13:00)
--- NOTE | 2019-02-18 13:27 | NUR ---
[id number] Cardiac status improved ie; tolerable pain level w/o need for medication and ability to get sleep w relief of the discomfort. VSS, morse patent. Dr Arlene Calderon in "suggestion to put heart cath off till am. Information relayed to KRISHNA Currie. Reported will communicate that w Dr Allen and he in turn will discuss w Dr Arlene Calderon. Medicated per order w meds prior to cath. home earlier. ,her ride got emergency call and was needed at home . Reassured would communicate results after known. Humidifier placed for patient c/o nasal dryness. [employer] transport of patient per bed ,full monitor,O2 to procedure. Prior to cath was able to get to [facility], large formed ,firm stool. Stomach ache now gone
[2019-02-18] MEDS ORDERED: NITROGLYCERIN SUBLINGUAL 0.4 MG BOTTLE OF 25. SL PRN (14:30)
--- NOTE | 2019-02-18 14:53 | NUR ---
1400 Return form [employer]. Rx medically,small vessels ,grafts patent. R groin stable at this time/ monitor per post cath protocol. Continued on flow sheets. Call to w information /results
--- NOTE | 2019-02-18 16:19 | CARD ---
MR#: [id number] Date of Study: 02/18/2019 Ordering Physician: FRANCES SWARTZ, Referring Physician: FRANCES SWARTZ, Tech: Kadeem Luis APPROVED REPORT Technologist: Kadeem Luis Nurse: Wanda Virk RN Procedure(s) performed: fl time: 5.1 mins dose: 101 gy/cm2 contrast: 59 ml visipaque moderate sedation: 40 MINS LHC, Coronary angiography, Bypass angiography HISTORY The patient is a 68 year-old male with a history of : diabetes mellitus with treatment, coronary viraj ry disease, hypertension, dyslipidemia. INDICATION The indication(s) include : non-STEMI , dyspnea, valvular heart disease. [facility] Clinical Frailty Scale [facility] Clinical Frailty Scale: Severely Frail Heart Failure Heart Failure: Yes If Yes, Newly Diagnosed: No If Yes, HF Type: Diastolic Systolic If Yes, NYHA Class: Class III PROCEDURE NARRATIVE After explaining the risks and benefits of the procedure and alternatives, informed consent was obtai huan. The patient was brought electively to the cardiac catheterization lab in a fasting state. A bobo eout was performed confirming the patient's name, date of , procedure, and site of procedure. A ll necessary personnel were wearing the appropriate protective equipment and radiation monitor device s. (See nursing notes for medications administered). The right groin was sterilely prepped and drap ed in the usual fashion. The right groin was infiltrated with 10 mL of 2% lidocaine for subcutaneous anesthesia. A 6 F sheath was inserted into the right femoral artery with difficulty due to obesity and calcification. Right and left coronary angiography was performed using a JR4 and JL4 catheter. Left ventricular end diastolic pressure was obtained with a pigtail catheter and pullback was perform ed after left ventriculography. Bypass angiography was performed with a JR4 and MAYRA catheters. All c atheter exchanges and advancements were performed over a guidewire. At case completion the right fem oral sheath was removed and hemostasis was achieved with manual compression. There were no acute com plications. HEMODYNAMICS: AO: 120/80 LVEDP 23 mm Hg No gradient on LV to aortic pullback. LEFT VENTRICULOGRAM: Deferred due to CKD CORONARY ANGIOGRAPHY: LM is a small caliber negatively remodeled vessel with a diffuse 50% stenosis. LAD is a moderate caliber vessel with an ostial 100% occlusion. The mid to distal vessel is seen to f ill via a patent SARMIENTO graft. LCx is a small caliber non-dominant vessel with mild diffuse irregularities. LPL is a small caliber vessel with a proximal subtotal occlusion. The mid to distal vessel is seen to fill via a saphenous jump graft. RCA is a large caliber dominant vessel with a proximal 40% stenosis, a patent mid stent with diffuse 30-40% ISR. RPDA is a moderate caliber vessels with normal angiographic appearance. BYPASS ANGIOGRAPHY: SARMIENTO to LAD - Widely patent without anastomotic stenosis. SVG jump graft to D1/LP1 - The SVG to D1 portion has a distal 40% stenosis. The jump portion to LPL1 has a patent stent. Conclusion 1. Acute on chronic systolic and diastolic HF. LVEDP 22 mm Hg. 2. Severe three vessel coronary disease. 3. 3/3 grafts patent. 4. Patent stents in the RCA. Recommendations Aggressive Medical Therapy Signed by : Gage Allen, Electronically Approved : 02/18/2019 16:18:54
[2019-02-18] MEDS: METOPROLOL TART IMMED RELEASE 50 MG TABLET. PO SCH ×2 (18:20→20:30)
[2019-02-18] MEDS: ISOSORBIDE MONONITRATE ER 30 MG TAB.ER.24H PO SCH (18:20)
[2019-02-18] MEDS: RANOLAZINE 500 MG TAB.ER.12H PO SCH ×2 (18:21→20:30)
[2019-02-18 19:06] LABS: BILIRUBIN,URINE NEGATIVE (NEG); CLARITY,URINE CLEAR; COLOR,URINE YELLOW; NITRITE,URINE NEGATIVE (NEG); PROTEIN,URINE NEGATIVE (NEG-TRACE)
[2019-02-18 19:12] LABS: BACTERIA,URINE 0 /HPF (0-FEW)
--- NOTE | 2019-02-18 19:34 | NUR ---
1800 Chair at bedside after pankaj meal. Steady on feet bears weight well. Am meds given after eating. Denies pain Hemostasis maintained w/o compromise distal to cath site R groin. Cont POC
[2019-02-18] MEDS: ATORVASTATIN CALCIUM 40 MG TABLET. PO SCH (20:30)
[2019-02-18] MEDS: GABAPENTIN 400 MG CAPSULE. PO SCH (20:30)
[2019-02-18] MEDS ORDERED: DEXTROSE 50% 25 GM / 50ML DISP.SYRIN. IV PRN (20:45)
[2019-02-19] VITALS (15 sets, daily range): BP systolic 109–163; BP diastolic 43–79
[2019-02-19 05:21] LABS: BASO % 0 % (0-3); EOS % 0 % (0-3); HEMATOCRIT 28.5 % (39.0-53.0); HEMOGLOBIN 9.1 g/dL (13.0-17.5); LYMPH # 0.4 x10^3/uL (1.0-4.8); LYMPH % 6 % (24-48); MEAN CORPUSCULAR HEMOGLOBIN 24 pg (25-35); MEAN CORPUSCULAR HGB CONC 32 g/dL (31-37); MEAN CORPUSCULAR VOLUME 76 fL (79-100); MONO # 0.1 x10^3/uL (0.0-1.1); MONO % 2 % (0-9); NEUT # 7.2 x10^3/uL (1.8-7.7); NEUT % 92 % (31-73); PLATELET COUNT 308 x10^3/uL (140-400); RED BLOOD COUNT 3.76 x10^6/uL (4.30-5.70); RED CELL DISTRIBUTION WIDTH 19.1 % (11.5-14.5); WHITE BLOOD COUNT 7.8 x10^3/uL (4.0-11.0)
[2019-02-19 05:42] LABS: ALBUMIN 2.9 g/dL (3.4-5.0); ALBUMIN/GLOBULIN RATIO 0.6 (1.0-1.7); CALCIUM 8.9 mg/dL (8.5-10.1); CREATININE 1.4 mg/dL (0.7-1.3); GFR 50.5; POTASSIUM 4.9 mmol/L (3.5-5.1); TOTAL BILIRUBIN 0.5 mg/dL (0.2-1.0); TOTAL PROTEIN 7.4 g/dL (6.4-8.2)
[2019-02-19] MEDS ORDERED: PANTOPRAZOLE IV PUSH 40 MG VIAL. IVP SCH (07:30)
[2019-02-19 07:53] LABS: % BANDS 3 % (0-9); % LYMPHS 6 % (24-48); % MONOS 1 % (0-10); % SEGS 90 % (35-66); ANISOCYTOSIS PRESENT; PLT ESTIMATE ADEQUATE (ADEQUATE); POLYCHROMASIA PRESENT
[2019-02-19 07:54] LABS: HYPOCHROMIA PRESENT; MICROCYTOSIS PRESENT
--- NOTE | 2019-02-19 08:09 | PDOC ---
SUBJECTIVE ROS Follow-up for acute on chronic renal insufficiency Patient is now status post left heart catheter. Results noted. Sugars are running slightly on the high side. Chest x-ray did show some CHF CVS: no Orthopnea, no CP RESP: no SOB, no PARHAM GI: no Nausea, no Vomiting : no Dysuria, no Urgency OBJECTIVE Vital Signs Vital Signs Date Time Temp Pulse Resp B/P (MAP) Pulse Ox O2 Delivery O2 Flow Rate FiO2 02/19/19 07:00 64 25 135/70 (91) 98 Nasal Cannula 3.0 02/19/19 04:00 97.6 97.6 I & 0 Intake and Output 02/19/19 07:00 Intake Total 300 ml Output Total 2305 ml Balance -2005 ml Intake Oral 300 ml Output Urine Total 2305 ml PHYSICAL EXAM Physical Exam General Appearance: Awake Alert Oriented x 3 In no current visilbe Distress Eyes: VIsion Unchanged Conjunctiva Normal EN: No EN Drainage Mucous Memb. moist Neck: no JVD no JVP Supple no Thyromegaly, thick neck CVS: S1 S2 + Murmur No Gallop No Rub no Edema, febrile peripheral pulses Resp: no Rales no Rhonchi no Acc. Muscle use GI: BS +ve NO Bruit Non Tender Non Distended, obese abdomen : no CVA tenderness; no Suprapubic Tenderness Assessment & Plan ARF: Possible bladder outlet obstruction cannot be ruled out. Urban catheter in place and urine output is good. Possible urinary retention/bladder outlet obstruction. Voiding trial with Urban removal. Flomax restarted - he was on it at home Underlying chronic kidney disease with baseline creatinine of 1.3 to 1.6 cannot be ruled out. Most likely associated with diabetic hypertensive nephrosclerosis This history of edema in his lower extremities: He does have low albumin at 2.8 suggesting possible underlying nephrotic state/syndrome. Can restart Lasix if needed Minimal CHF on chest x-ray: Can restart Lasix as needed Anemia: We'll defer this to oncology. Appears to be iron deficient and B12 deficient HTN: Current BP meds reviewed. Further cardiology for optimization of medical management Non-STEMI: Patient now status post left heart catheter with minimal contrast are supported. Possible peripheral vascular disease will need evaluation down the road Discussed Plan of Care and prognosis etc. at length with patient and ICU nurse I recommended that he follow-up with nephrology chronic kidney disease at the [place]. He already sees urology. I will be available if needed over the weekend. Please call with questions concerns. We'll follow up on Friday otherwise COMMENT/RELEVANT DATA Meds Current Medications Medications (Trade) Dose Ordered Sig/Mejia Start Time Stop Time Status Last Admin Dose Admin Aspirin (Ecotrin) 81 mg [id number] 02/19/19 08:00 Atorvastatin Calcium (Lipitor) 80 mg QHS 02/17/19 21:00 02/18/19 20:30 80 MG Clopidogrel Bisulfate (Plavix) 75 mg DAILY 02/17/19 13:00 02/17/19 14:41 DC 02/17/19 14:43 75 MG Cyanocobalamin (Vitamin B-12) 1,000 mcg DAILY 02/18/19 12:00 Dextrose (Dextrose 50%-Water Syringe) 12.5 gm PRN Q15MIN PRN 02/18/19 20:45 Diphenhydramine HCl (Benadryl) 25 mg 1X ONCE 02/18/19 12:00 02/18/19 12:01 DC 02/18/19 12:02 25 MG Famotidine (Pepcid Vial) 20 mg STK-MED ONCE 02/18/19 12:11 02/18/19 12:12 DC Fentanyl Citrate (Fentanyl 2ml Vial) 100 mcg 1X ONCE 02/18/19 13:00 02/18/19 13:02 DC 02/18/19 13:00 75 MCG Ferrous Sulfate (Iron Oral Solution) 300 mg BIDWMEALS 02/18/19 12:00 02/18/19 18:25 300 MG Gabapentin (Neurontin) 400 mg TID 02/18/19 21:00 02/18/19 20:30 400 MG Heparin Sodium (Porcine) (Heparin Sodium) 3,100 unit PRN Q6HRS PRN 02/17/19 20:15 02/17/19 20:11 3,100 UNIT Heparin Sodium/ Dextrose 500 ml @ 0 mls/hr CONT 02/17/19 20:00 UNV Heparin Sodium/ Sodium Chloride (HEPARIN for ARTERIAL LINE FLUSH) 1,000 unit 1X ONCE 02/18/19 13:00 02/18/19 13:02 DC 02/18/19 13:00 1,000 UNIT Insulin Human Lispro (HumaLOG) 0-9 UNITS TIDWMEALHC 02/18/19 21:00 02/18/19 21:05 4 UNITS Iodixanol (Visipaque 320) 100 ml 1X ONCE 02/18/19 13:00 02/18/19 13:03 DC 02/18/19 13:00 59 ML Isosorbide Mononitrate (Imdur) 30 mg DAILY 02/17/19 13:00 02/18/19 18:20 30 MG Lidocaine HCl (Lidocaine 1% 20ml Vial) 20 ml 1X ONCE 02/18/19 13:00 02/18/19 13:02 DC 02/18/19 13:00 14 ML Lidocaine HCl (Xylocaine-Mpf 1% 2ml Vial) 2 ml STK-MED ONCE 02/18/19 12:19 02/18/19 12:19 DC Magnesium Sulfate 50 ml @ 25 mls/hr PRN DAILY PRN 02/18/19 08:45 02/18/19 15:32 DC 02/18/19 12:06 25 MLS/HR Methylprednisolone Sodium Succinate (SOLU-Medrol 125MG VIAL) 125 mg 1X ONCE 02/18/19 12:00 02/18/19 12:01 DC 02/18/19 12:01 125 MG Metoprolol Tartrate (Lopressor) 50 mg BID 02/17/19 13:00 02/18/19 20:30 50 MG Midazolam HCl (Versed) 2 mg 1X ONCE 02/18/19 13:00 02/18/19 13:02 DC 02/18/19 13:00 1 MG Morphine Sulfate (Morphine Sulfate) 2 mg PRN Q2HR PRN 02/17/19 15:30 UNV Nitroglycerin (Nitrostat) 0.4 mg PRN Q5MIN PRN 02/18/19 14:30 Pantoprazole Sodium (PROTONIX VIAL for IV PUSH) 40 mg DAILYAC 02/19/19 07:30 Ranolazine (Ranexa) 500 mg BID 02/17/19 13:00 02/18/19 20:30 500 MG Sodium Chloride 1,000 ml @ 75 mls/hr [id number] 02/18/19 09:00 02/18/19 15:32 DC 02/18/19 09:00 75 MLS/HR Lab Laboratory Tests Test 02/18/19 12:26 02/18/19 18:06 02/18/19 19:00 11/7/19 20:33 Glucose (Fingerstick) 165 mg/dL (70-99) 196 mg/dL (70-99) 269 mg/dL (70-99) Urine Collection Type U cath Urine Color Yellow Urine Clarity Clear Urine pH 7.0 Urine Specific Magee 1.025 Urine Protein Negative mg/dL (NEG-TRACE) Urine Glucose (UA) Negative mg/dL (NEG) Urine Ketones (Stick) Trace mg/dL (NEG) Urine Blood Moderate (NEG) Urine Nitrite Negative (NEG) Urine Bilirubin Negative (NEG) Urine Urobilinogen Dipstick 1.0 mg/dL (0.2 mg/dL) Urine Leukocyte Esterase Small (NEG) Urine RBC 11-20 /HPF (0-2) Urine WBC 1-4 /HPF (0-4) Urine Bacteria 0 /HPF (0-FEW) Test 02/18/19 20:59 02/19/19 05:00 Glucose (Fingerstick) 293 mg/dL (70-99) White Blood Count 7.8 x10^3/uL (4.0-11.0) Red Blood Count 3.76 x10^6/uL (4.30-5.70) Hemoglobin 9.1 g/dL (13.0-17.5) Hematocrit 28.5 % (39.0-53.0) Mean Corpuscular Volume 76 fL (79-100) Mean Corpuscular Hemoglobin 24 pg (25-35) Mean Corpuscular Hemoglobin Concent 32 g/dL (31-37) Red Cell Distribution Width 19.1 % (11.5-14.5) Platelet Count 308 x10^3/uL (140-400) Neutrophils (%) (Auto) 92 % (31-73) Lymphocytes (%) (Auto) 6 % (24-48) Monocytes (%) (Auto) 2 % (0-9) Eosinophils (%) (Auto) 0 % (0-3) Basophils (%) (Auto) 0 % (0-3) Neutrophils # (Auto) 7.2 x10^3/uL (1.8-7.7) Lymphocytes # (Auto) 0.4 x10^3/uL (1.0-4.8) Monocytes # (Auto) 0.1 x10^3/uL (0.0-1.1) Eosinophils # (Auto) 0.0 x10^3/uL (0.0-0.7) Basophils # (Auto) 0.0 x10^3/uL (0.0-0.2) Segmented Neutrophils % 90 % (35-66) Band Neutrophils % 3 % (0-9) Lymphocytes % 6 % (24-48) Monocytes % 1 % (0-10) Platelet Estimate Adequate (ADEQUATE) Polychromasia Present Hypochromasia Present Anisocytosis Present Microcytosis Present Macrocytosis Present Sodium Level 142 mmol/L (136-145) Potassium Level 4.9 mmol/L (3.5-5.1) Chloride Level 103 mmol/L (98-107) Carbon Dioxide Level 32 mmol/L (21-32) Anion Gap 7 (6-14) Blood Urea Nitrogen 24 mg/dL (8-26) Creatinine 1.4 mg/dL (0.7-1.3) Estimated GFR (Cockcroft-Gault) 50.5 BUN/Creatinine Ratio 17 (6-20) Glucose Level 300 mg/dL (70-99) Calcium Level 8.9 mg/dL (8.5-10.1) Magnesium Level 2.2 mg/dL (1.8-2.4) Total Bilirubin 0.5 mg/dL (0.2-1.0) Aspartate Amino Transf (AST/SGOT) 24 U/L (15-37) Alanine Aminotransferase (ALT/SGPT) 8 U/L (16-63) Alkaline Phosphatase 122 U/L (46-116) Total Protein 7.4 g/dL (6.4-8.2) Albumin 2.9 g/dL (3.4-5.0) Albumin/Globulin Ratio 0.6 (1.0-1.7) Results All relevant outside records, renal labs, imaging studies, telemetry/EKG's were reviewed. Other Findings: Right kidney: measures 11.4 x 5.6 x 5.0 cm. No hydronephrosis. Degraded evaluation of the right kidney due to overlying bowel gas. Left kidney: measures 13.2 x 6.6 x 6.7 cm. No hydronephrosis. Small left renal cyst within the mid kidney measures 8 x 9 mm. Urinary bladder: Decompressed urinary bladder with catheter in place. Nonaneurysmal proximal aorta. Mid and distal aorta not well seen due to overlying bowel gas. Patent IVC. IMPRESSION: 1. Small left renal cyst. 2. Otherwise, unremarkable renal ultrasound. Single view of the chest. 02/18/2019 12:00 AM Indication: Myocardial infarction Comparison: None Findings: The heart is mildly enlarged.. Central vascular congestion and possible mild interstitial edema noted. No pneumothorax or effusion is seen. Prior median sternotomy noted. Probable prior CABG surgery noted. Bony thorax is grossly intact. IMPRESSION: 1. Prior median sternotomy and likely CABG surgery. Cardiomegaly. 2. Central vascular congestion and mild interstitial lupe LENA GRIFFIN MD Feb 19, 2019 08:09
--- NOTE | 2019-02-19 09:21 | PDOC ---
FRANCES SWARTZ SHOVE UP 02/19/19 0921: CARDIO Progress Notes Date and Time Date of Service 02/19/2019 Time of Evaluation 0840 Subjective Subjective: No Chest Pain, No shortness of breath, No Palpitations Vitals Vitals Vital Signs Date Time Temp Pulse Resp B/P (MAP) Pulse Ox O2 Delivery O2 Flow Rate FiO2 02/19/19 08:09 Nasal Cannula 4.0 02/19/19 08:00 97.7 73 25 139/61 (87) 98 97.7 Weight Weight [ ] Input and Output Intake and Output Intake and Output 02/19/19 07:00 Intake Total 300 ml Output Total 2305 ml Balance -2005 ml Intake Oral 300 ml Output Urine Total 2305 ml Laboratory Labs Laboratory Tests Test 02/18/19 12:26 02/18/19 18:06 02/18/19 19:00 02/18/19 20:33 Glucose (Fingerstick) 165 mg/dL (70-99) 196 mg/dL (70-99) 269 mg/dL (70-99) Urine Collection Type U cath Urine Color Yellow Urine Clarity Clear Urine pH 7.0 Urine Specific [place] 1.025 Urine Protein Negative mg/dL (NEG-TRACE) Urine Glucose (UA) Negative mg/dL (NEG) Urine Ketones (Stick) Trace mg/dL (NEG) Urine Blood Moderate (NEG) Urine Nitrite Negative (NEG) Urine Bilirubin Negative (NEG) Urine Urobilinogen Dipstick 1.0 mg/dL (0.2 mg/dL) Urine Leukocyte Esterase Small (NEG) Urine RBC 11-20 /HPF (0-2) Urine WBC 1-4 /HPF (0-4) Urine Bacteria 0 /HPF (0-FEW) Test 02/18/19 20:59 02/19/19 05:00 Glucose (Fingerstick) 293 mg/dL (70-99) White Blood Count 7.8 x10^3/uL (4.0-11.0) Red Blood Count 3.76 x10^6/uL (4.30-5.70) Hemoglobin 9.1 g/dL (13.0-17.5) Hematocrit 28.5 % (39.0-53.0) Mean Corpuscular Volume 76 fL (79-100) Mean Corpuscular Hemoglobin 24 pg (25-35) Mean Corpuscular Hemoglobin Concent 32 g/dL (31-37) Red Cell Distribution Width 19.1 % (11.5-14.5) Platelet Count 308 x10^3/uL (140-400) Neutrophils (%) (Auto) 92 % (31-73) Lymphocytes (%) (Auto) 6 % (24-48) Monocytes (%) (Auto) 2 % (0-9) Eosinophils (%) (Auto) 0 % (0-3) Basophils (%) (Auto) 0 % (0-3) Neutrophils # (Auto) 7.2 x10^3/uL (1.8-7.7) Lymphocytes # (Auto) 0.4 x10^3/uL (1.0-4.8) Monocytes # (Auto) 0.1 x10^3/uL (0.0-1.1) Eosinophils # (Auto) 0.0 x10^3/uL (0.0-0.7) Basophils # (Auto) 0.0 x10^3/uL (0.0-0.2) Segmented Neutrophils % 90 % (35-66) Band Neutrophils % 3 % (0-9) Lymphocytes % 6 % (24-48) Monocytes % 1 % (0-10) Platelet Estimate Adequate (ADEQUATE) Polychromasia Present Hypochromasia Present Anisocytosis Present Microcytosis Present Macrocytosis Present Sodium Level 142 mmol/L (136-145) Potassium Level 4.9 mmol/L (3.5-5.1) Chloride Level 103 mmol/L (98-107) Carbon Dioxide Level 32 mmol/L (21-32) Anion Gap 7 (6-14) Blood Urea Nitrogen 24 mg/dL (8-26) Creatinine 1.4 mg/dL (0.7-1.3) Estimated GFR (Cockcroft-Gault) 50.5 BUN/Creatinine Ratio 17 (6-20) Glucose Level 300 mg/dL (70-99) Calcium Level 8.9 mg/dL (8.5-10.1) Magnesium Level 2.2 mg/dL (1.8-2.4) Total Bilirubin 0.5 mg/dL (0.2-1.0) Aspartate Amino Transf (AST/SGOT) 24 U/L (15-37) Alanine Aminotransferase (ALT/SGPT) 8 U/L (16-63) Alkaline Phosphatase 122 U/L (46-116) Total Protein 7.4 g/dL (6.4-8.2) Albumin 2.9 g/dL (3.4-5.0) Albumin/Globulin Ratio 0.6 (1.0-1.7) Physical Exam HEENT: Neck Supple W Full Motion Chest: Symmetric LUNGS: Clear to Auscultation Heart: S1S2, RRR (SR no ectopies) Abdomen: Soft N/T Extremities: No Calf Tenderness Neurology: alert, oriented, follow commands Other Exams right groin arteriotomy site intact and dry, no hematoma, neurovascular status to bilateral LE intact Assessment Assessment 1. NSTEMI; Peaked trop at 22. LHC revealed 3/3 grafts patent with patent RCA stent. 2. CAD s/p CABG 2005 3. Acute on chronic respiratory failure with combination of COPD, anemia and CHF 4. Chronic diastolic CHF: EF 50%, compensated 5. Anemia: FE def. with possible GI bleed component with previous polyps and removal. GI following 6. suspect CKD3 7. Hypertension 8. Hyperlipidemia 9. Diabetes, II 10. LUNA, morbid obestiy 11. Tobaccoism; quit last week Recommendations 1. Possible microvascular dysfunction with concurrent acute extracardiac issues potentiating NSTEMI. Continue with imdur and ranexa 2. ASA. Discussed with GI ok to start on plavix. 3. Continue with BB and statin. Unable to place on ACEi/ARB due to allergy 4. Smoking cessation 5. Follow up with [facility]. MECHELLE HARRISON MD 02/19/19 2352: CARDIO Progress Notes Plan Plan Pt. seen and examined. Agree with above MANAGER EMERGENCY note. Doing well. No further CP. Continue excellent Cardiac regimen. No bleeding issues. FRANCES SWARTZ APRN Feb 19, 2019 09:21 MECHELLE HARRISON MD Feb 19, 2019 23:52
--- NOTE | 2019-02-19 09:34 | PDOC ---
Subjective: Subjective: Denies chest pain. Eating and stooling without issue. No bleeding. Objective: Vital Signs: Vital Signs Date Time Temp Pulse Resp B/P (MAP) Pulse Ox O2 Delivery O2 Flow Rate FiO2 02/19/19 08:09 Nasal Cannula 4.0 02/19/19 08:00 97.7 73 25 139/61 (87) 98 97.7 Labs: Laboratory Tests Test 02/18/19 12:26 02/18/19 18:06 02/18/19 19:00 02/18/19 20:33 Glucose (Fingerstick) 165 mg/dL 196 mg/dL 269 mg/dL Urine Collection Type U cath Urine Color Yellow Urine Clarity Clear Urine pH 7.0 Urine Specific [place] 1.025 Urine Protein Negative mg/dL Urine Glucose (UA) Negative mg/dL Urine Ketones (Stick) Trace mg/dL Urine Blood Moderate Urine Nitrite Negative Urine Bilirubin Negative Urine Urobilinogen Dipstick 1.0 mg/dL Urine Leukocyte Esterase Small Urine RBC 11-20 /HPF Urine WBC 1-4 /HPF Urine Bacteria 0 /HPF Test 02/18/19 20:59 02/19/19 05:00 Glucose (Fingerstick) 293 mg/dL White Blood Count 7.8 x10^3/uL Red Blood Count 3.76 x10^6/uL Hemoglobin 9.1 g/dL Hematocrit 28.5 % Mean Corpuscular Volume 76 fL Mean Corpuscular Hemoglobin 24 pg Mean Corpuscular Hemoglobin Concent 32 g/dL Red Cell Distribution Width 19.1 % Platelet Count 308 x10^3/uL Neutrophils (%) (Auto) 92 % Lymphocytes (%) (Auto) 6 % Monocytes (%) (Auto) 2 % Eosinophils (%) (Auto) 0 % Basophils (%) (Auto) 0 % Neutrophils # (Auto) 7.2 x10^3/uL Lymphocytes # (Auto) 0.4 x10^3/uL Monocytes # (Auto) 0.1 x10^3/uL Eosinophils # (Auto) 0.0 x10^3/uL Basophils # (Auto) 0.0 x10^3/uL Segmented Neutrophils % 90 % Band Neutrophils % 3 % Lymphocytes % 6 % Monocytes % 1 % Platelet Estimate Adequate Polychromasia Present Hypochromasia Present Anisocytosis Present Microcytosis Present Macrocytosis Present Sodium Level 142 mmol/L Potassium Level 4.9 mmol/L Chloride Level 103 mmol/L Carbon Dioxide Level 32 mmol/L Anion Gap 7 Blood Urea Nitrogen 24 mg/dL Creatinine 1.4 mg/dL Estimated GFR (Cockcroft-Gault) 50.5 BUN/Creatinine Ratio 17 Glucose Level 300 mg/dL Calcium Level 8.9 mg/dL Phosphorus Level Pending Magnesium Level 2.2 mg/dL Total Bilirubin 0.5 mg/dL Aspartate Amino Transf (AST/SGOT) 24 U/L Alanine Aminotransferase (ALT/SGPT) 8 U/L Alkaline Phosphatase 122 U/L Total Protein 7.4 g/dL Albumin 2.9 g/dL Albumin/Globulin Ratio 0.6 Imaging: Cardiac Cath Conclusion 1. Acute on chronic systolic and diastolic HF. LVEDP 22 mm Hg. 2. Severe three vessel coronary disease. 3. 3/3 grafts patent. 4. Patent stents in the RCA. Recommendations Aggressive Medical Therapy PE: GEN: NAD - up in chair, 100% of breakfast consumed LUNGS: NC 4L HEART: RRR ABD: S/ND/NT NEURO/PSYCH: A & O 3 A/P: CHF, CAD MARZENA, B12 deficiency - recent 'scopes at [facility] w/ GERD, portal hypertensive gastropathy, colon polyps -- Continue PPI, B12, iron. Monitor Hgb. KALEY VILLALOBOS Feb 19, 2019 09:33
--- NOTE | 2019-02-19 09:40 | PDOC ---
SUBJECTIVE Subjective S: doing much better, no pain now O: Physical exam: Gen.: Well-nourished and well-developed, resting in chair Lungs: Breathing comfortably on O2 Psychiatric: Pleasant mood and affect Labs: hemoglobin 9.1, ferritin 245, iron sat 10%, troponin 22, B12 194, reticulocyte 3%, TIBC normal Assessment and Plan: He is a 68-year-old man with NE and anemia and recent colon polypectomies Acute coronary syndrome: Per cardiology, post cardiac catheterization Anemia: SPEP and copper ordered, other labs show a low iron saturation and B12 deficiency, he will continue on oral B12 1000 g daily, recommend indefinite use, and oral iron, follow-up labs can be obtained through the [facility] Renal insufficiency: Per others Recent colon polyps resected, pathology not available at this time, he was told he needed an oncology consult, would recommend obtaining path from recent polypectomies at the [facility], Ms De Oliveira will call today, appreciated evidence of recent gastritis and esophagitis: on PPI Thank you kindly and please do not hesitate to call with questions. OBJECTIVE Vital Signs Vital Signs Date Time Temp Pulse Resp B/P (MAP) Pulse Ox O2 Delivery O2 Flow Rate FiO2 02/19/19 08:09 Nasal Cannula 4.0 02/19/19 08:00 97.7 73 25 139/61 (87) 98 Nasal Cannula 3.0 97.7 02/19/19 07:00 64 25 135/70 (91) 98 Nasal Cannula 3.0 02/19/19 06:00 64 21 125/56 (79) 99 Nasal Cannula 3.0 02/19/19 05:00 66 21 115/47 (69) 99 Nasal Cannula 3.0 02/19/19 04:00 Nasal Cannula 4.0 02/19/19 04:00 97.6 64 21 109/43 (65) 99 Nasal Cannula 3.0 97.6 02/19/19 03:00 64 22 127/61 (83) 98 Nasal Cannula 3.0 02/19/19 02:00 67 21 139/64 (89) 96 Nasal Cannula 3.0 02/19/19 01:00 72 19 113/53 (73) 96 Nasal Cannula 3.0 02/19/19 00:00 Nasal Cannula 6.0 02/19/19 00:00 97.5 72 21 131/56 (81) 99 Nasal Cannula 3.0 97.5 02/18/19 23:00 71 9 127/56 (79) 97 Nasal Cannula 3.0 02/18/19 22:00 74 23 128/58 (81) 97 Nasal Cannula 3.0 02/18/19 21:00 78 24 119/56 (77) 94 Nasal Cannula 3.0 02/18/19 20:30 73 116/50 02/18/19 20:30 75 116/50 02/18/19 20:00 Nasal Cannula 3.0 02/18/19 20:00 98.7 86 22 116/50 (72) 96 Nasal Cannula 3.0 98.7 02/18/19 18:21 78 132/71 02/18/19 18:20 82 158/82 02/18/19 18:20 82 158/80 02/18/19 18:00 86 23 136/68 (90) 95 Nasal Cannula 3.0 02/18/19 17:00 98.6 76 23 139/64 (89) 96 Nasal Cannula 3.0 98.6 02/18/19 16:07 Nasal Cannula 3.0 02/18/19 16:00 76 27 140/54 (82) 97 Nasal Cannula 3.0 02/18/19 15:30 76 23 129/60 (83) 95 Nasal Cannula 3.0 02/18/19 15:00 78 25 132/71 (91) 95 Nasal Cannula 3.0 02/18/19 14:45 78 29 132/60 (84) 94 Nasal Cannula 3.0 02/18/19 14:30 78 25 134/61 (85) 94 Nasal Cannula 3.0 02/18/19 14:15 78 26 127/57 (80) 94 Nasal Cannula 3.0 02/18/19 14:02 98.0 77 32 134/ 92 Nasal Cannula 3.0 98.0 02/18/19 13:39 79 20 92 Nasal Cannula 3.5 02/18/19 13:00 18 02/18/19 12:00 97.6 74 109/59 (76) 96 Nasal Cannula 4.0 97.6 02/18/19 12:00 Nasal Cannula 3.0 02/18/19 11:00 74 122/63 (82) 97 Nasal Cannula 4.0 02/18/19 10:00 68 123/60 (81) 99 Nasal Cannula 4.0 I & O Intake and Output 02/19/19 06:59 Intake Total 300 ml Output Total 2455 ml Balance -2155 ml Intake Oral 300 ml Output Urine Total 2455 ml COMMENT Lab Laboratory Tests Test 02/18/19 12:26 02/18/19 18:06 02/18/19 19:00 02/18/19 20:33 Glucose (Fingerstick) 165 mg/dL (70-99) 196 mg/dL (70-99) 269 mg/dL (70-99) Urine Collection Type U cath Urine Color Yellow Urine Clarity Clear Urine pH 7.0 Urine Specific [place] 1.025 Urine Protein Negative mg/dL (NEG-TRACE) Urine Glucose (UA) Negative mg/dL (NEG) Urine Ketones (Stick) Trace mg/dL (NEG) Urine Blood Moderate (NEG) Urine Nitrite Negative (NEG) Urine Bilirubin Negative (NEG) Urine Urobilinogen Dipstick 1.0 mg/dL (0.2 mg/dL) Urine Leukocyte Esterase Small (NEG) Urine RBC 11-20 /HPF (0-2) Urine WBC 1-4 /HPF (0-4) Urine Bacteria 0 /HPF (0-FEW) Test 02/18/19 20:59 02/19/19 05:00 Glucose (Fingerstick) 293 mg/dL (70-99) White Blood Count 7.8 x10^3/uL (4.0-11.0) Red Blood Count 3.76 x10^6/uL (4.30-5.70) Hemoglobin 9.1 g/dL (13.0-17.5) Hematocrit 28.5 % (39.0-53.0) Mean Corpuscular Volume 76 fL (79-100) Mean Corpuscular Hemoglobin 24 pg (25-35) Mean Corpuscular Hemoglobin Concent 32 g/dL (31-37) Red Cell Distribution Width 19.1 % (11.5-14.5) Platelet Count 308 x10^3/uL (140-400) Neutrophils (%) (Auto) 92 % (31-73) Lymphocytes (%) (Auto) 6 % (24-48) Monocytes (%) (Auto) 2 % (0-9) Eosinophils (%) (Auto) 0 % (0-3) Basophils (%) (Auto) 0 % (0-3) Neutrophils # (Auto) 7.2 x10^3/uL (1.8-7.7) Lymphocytes # (Auto) 0.4 x10^3/uL (1.0-4.8) Monocytes # (Auto) 0.1 x10^3/uL (0.0-1.1) Eosinophils # (Auto) 0.0 x10^3/uL (0.0-0.7) Basophils # (Auto) 0.0 x10^3/uL (0.0-0.2) Segmented Neutrophils % 90 % (35-66) Band Neutrophils % 3 % (0-9) Lymphocytes % 6 % (24-48) Monocytes % 1 % (0-10) Platelet Estimate Adequate (ADEQUATE) Polychromasia Present Hypochromasia Present Anisocytosis Present Microcytosis Present Macrocytosis Present Sodium Level 142 mmol/L (136-145) Potassium Level 4.9 mmol/L (3.5-5.1) Chloride Level 103 mmol/L (98-107) Carbon Dioxide Level 32 mmol/L (21-32) Anion Gap 7 (6-14) Blood Urea Nitrogen 24 mg/dL (8-26) Creatinine 1.4 mg/dL (0.7-1.3) Estimated GFR (Cockcroft-Gault) 50.5 BUN/Creatinine Ratio 17 (6-20) Glucose Level 300 mg/dL (70-99) Calcium Level 8.9 mg/dL (8.5-10.1) Magnesium Level 2.2 mg/dL (1.8-2.4) Total Bilirubin 0.5 mg/dL (0.2-1.0) Aspartate Amino Transf (AST/SGOT) 24 U/L (15-37) Alanine Aminotransferase (ALT/SGPT) 8 U/L (16-63) Alkaline Phosphatase 122 U/L (46-116) Total Protein 7.4 g/dL (6.4-8.2) Albumin 2.9 g/dL (3.4-5.0) Albumin/Globulin Ratio 0.6 (1.0-1.7) FEDERICO RAMIREZ MD Feb 19, 2019 09:40
[2019-02-19] MEDS: ISOSORBIDE MONONITRATE ER 30 MG TAB.ER.24H PO SCH (09:59)
[2019-02-19] MEDS: GABAPENTIN 400 MG CAPSULE. PO SCH ×3 (09:59→20:25)
[2019-02-19] MEDS: TAMSULOSIN 0.4 MG CAP.ER.24H. PO SCH (09:59)
[2019-02-19] MEDS: METOPROLOL TART IMMED RELEASE 50 MG TABLET. PO SCH ×2 (10:00→20:25)
[2019-02-19] MEDS ORDERED: CLOPIDOGREL BISULFATE 75 MG TABLET PO ONE (10:00)
[2019-02-19] MEDS: ASPIRIN ENTERIC COATED 81 MG TABLET.DR. PO SCH (10:00)
[2019-02-19] MEDS: RANOLAZINE 500 MG TAB.ER.12H PO SCH ×2 (10:00→20:24)
[2019-02-19] MEDS: DOCUSATE SODIUM 100 MG CAPSULE. PO SCH (10:00)
[2019-02-19] MEDS: FERROUS SULFATE ORAL 300 MG/5 ML SOLUTION. PO SCH (10:00)
[2019-02-19] MEDS: INSULIN LISPRO 300 UNITS/3 ML VIAL. SQ SCH ×4 (10:09→20:45)
[2019-02-19 10:10] LABS: PHOSPHORUS 4.5 mg/dL (2.6-4.7)
--- NOTE | 2019-02-19 11:14 | NUR ---
SS following up with discharge planning. PT recommended home with assistance. Pt is currently requiring oxygen. SS will continue to follow for discharge planning.
[2019-02-19] MEDS: FERROUS SULFATE 325 MG TABLET. PO SCH ×2 (11:52→20:25)
[2019-02-19] MEDS: INSULIN GLARGINE SYRINGE. SQ SCH (11:54)
[2019-02-19] MEDS: CYANOCOBALAMIN (VITAMIN B-12) 1,000 MCG/ML VIAL IM SCH (12:11)
--- NOTE | 2019-02-19 13:03 | PDOC ---
[employer] PROGRESS NOTE Chief Complaint Chief Complaint Chest pain, NSTEMI History of Present Illness History of Present Illness This is a 68 yo male who transferred from the [facility] secondary to chest pain and elevated troponin. Patient follows with the [facility]. Has extensive cardiac history as noted below. Had routine visit with Dr. Smith a week and a half ago. Was SOA, slightly disoriented, and had mild chest pain. Was referred to the ED for further evaluation and treatment. Was admitted to the ICU. Hgb drifted from 12 range down to 7.4. Concerns for GI bleed. Underwent EGD and colonoscopy without any obvious bleeding per . Was discharge home with iron this past Friday. [place] well over the weekend. On Friday morning, legs were weak "felt like Jello" and had difficulty with speech. Had mild pain in his central chest and shortness of breath. Decided to go back to the ED at the [facility]. Overnight, developed excruciating pain in his central chest. Describes as squeezing. Radiated down his left arm. Associated with nausea/vomiting, belching, and shortness of breath. Took nitro x4 without any significant relief. Was start on nitro and heparin gtt without any significant improvement. Was given IV morphine, which finally improved the pain. Trop was noted to be elevated, reportedly 6.5, and patient was transferred to [facility] for further evaluation and treatment. Presently CP free. 02/18: Patient seen and examined in ICU, patient is noted to be alert and oriented X3. Patient is currently on a heparin drip and is awaiting cardiac catheterization. Patient is currently wheezing upon lung auscultation. 02/19: Patient seen and examined in ICU, patient states that he did not receive his diabetes mediation overnight and this caused him to have a blood sugar of >300, patient appeared agitated by this. 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 Patient's anemia is being treated with Vitamin B12 along with Iron, hope to transfer out of ICU today. Vitals/I&O Vitals/I&O: Vital Signs Date Time Temp Pulse Resp B/P (MAP) Pulse Ox O2 Delivery O2 Flow Rate FiO2 02/19/19 11:48 Room Air 02/19/19 10:00 73 139/61 02/19/19 08:09 4.0 11/8/19 08:00 97.7 25 98 97.7 I & O 02/18/19 02/18/19 02/19/19 15:00 23:00 07:00 Intake Total 0 ml 300 ml Output Total 1360 ml 525 ml 420 ml Balance -1360 ml -225 ml -420 ml Physical Exam General: Alert, Oriented X3, Cooperative, No acute distress Heart: Regular rate, Other (distant heart tones ) Lungs: Wheezing Abdomen: Normal bowel sounds, Soft, No tenderness, No hepatosplenomegaly, Other (obese ) Extremities: No clubbing, No cyanosis, No edema, Normal pulses Skin: No rashes, No breakdown, No significant lesion Labs Labs: Laboratory Tests Test 02/18/19 18:06 02/18/19 19:00 02/18/19 20:33 02/18/19 20:59 Glucose (Fingerstick) 196 mg/dL (70-99) 269 mg/dL (70-99) 293 mg/dL (70-99) Urine Collection Type U cath Urine Color Yellow Urine Clarity Clear Urine pH 7.0 Urine Specific [place] 1.025 Urine Protein Negative mg/dL (NEG-TRACE) Urine Glucose (UA) Negative mg/dL (NEG) Urine Ketones (Stick) Trace mg/dL (NEG) Urine Blood Moderate (NEG) Urine Nitrite Negative (NEG) Urine Bilirubin Negative (NEG) Urine Urobilinogen Dipstick 1.0 mg/dL (0.2 mg/dL) Urine Leukocyte Esterase Small (NEG) Urine RBC 11-20 /HPF (0-2) Urine WBC 1-4 /HPF (0-4) Urine Bacteria 0 /HPF (0-FEW) Test 02/19/19 05:00 02/19/19 12:00 White Blood Count 7.8 x10^3/uL (4.0-11.0) Red Blood Count 3.76 x10^6/uL (4.30-5.70) Hemoglobin 9.1 g/dL (13.0-17.5) Hematocrit 28.5 % (39.0-53.0) Mean Corpuscular Volume 76 fL (79-100) Mean Corpuscular Hemoglobin 24 pg (25-35) Mean Corpuscular Hemoglobin Concent 32 g/dL (31-37) Red Cell Distribution Width 19.1 % (11.5-14.5) Platelet Count 308 x10^3/uL (140-400) Neutrophils (%) (Auto) 92 % (31-73) Lymphocytes (%) (Auto) 6 % (24-48) Monocytes (%) (Auto) 2 % (0-9) Eosinophils (%) (Auto) 0 % (0-3) Basophils (%) (Auto) 0 % (0-3) Neutrophils # (Auto) 7.2 x10^3/uL (1.8-7.7) Lymphocytes # (Auto) 0.4 x10^3/uL (1.0-4.8) Monocytes # (Auto) 0.1 x10^3/uL (0.0-1.1) Eosinophils # (Auto) 0.0 x10^3/uL (0.0-0.7) Basophils # (Auto) 0.0 x10^3/uL (0.0-0.2) Segmented Neutrophils % 90 % (35-66) Band Neutrophils % 3 % (0-9) Lymphocytes % 6 % (24-48) Monocytes % 1 % (0-10) Platelet Estimate Adequate (ADEQUATE) Polychromasia Present Hypochromasia Present Anisocytosis Present Microcytosis Present Macrocytosis Present Sodium Level 142 mmol/L (136-145) Potassium Level 4.9 mmol/L (3.5-5.1) Chloride Level 103 mmol/L (98-107) Carbon Dioxide Level 32 mmol/L (21-32) Anion Gap 7 (6-14) Blood Urea Nitrogen 24 mg/dL (8-26) Creatinine 1.4 mg/dL (0.7-1.3) Estimated GFR (Cockcroft-Gault) 50.5 BUN/Creatinine Ratio 17 (6-20) Glucose Level 300 mg/dL (70-99) Calcium Level 8.9 mg/dL (8.5-10.1) Phosphorus Level 4.5 mg/dL (2.6-4.7) Magnesium Level 2.2 mg/dL (1.8-2.4) Total Bilirubin 0.5 mg/dL (0.2-1.0) Aspartate Amino Transf (AST/SGOT) 24 U/L (15-37) Alanine Aminotransferase (ALT/SGPT) 8 U/L (16-63) Alkaline Phosphatase 122 U/L (46-116) Total Protein 7.4 g/dL (6.4-8.2) Albumin 2.9 g/dL (3.4-5.0) Albumin/Globulin Ratio 0.6 (1.0-1.7) Glucose (Fingerstick) 407 mg/dL (70-99) Review of Systems Review of Systems: Patient denies Numbness or tingling, and N/V Assessment and Plan Assessmemt and Plan Assessment: NSTEMI, Chest pain, Uncontrolled DM Plan: 1. ICU monitoring 2. begin Vitamin B12 and Iron replacement 3. transfer out of ICU to telemetry unit 4. trend labs 5. resume home meds 6. DVT prophylaxis 7. PT/OT 8. Full code Comment Review of Relevant I have reviewed the following items mildred (where applicable) has been applied. Medications: Current Medications Medications (Trade) Dose Ordered Sig/Mejia Route PRN Reason Start Time Stop Time Status Last Admin Dose Admin Pantoprazole Sodium (PROTONIX VIAL for IV PUSH) 40 mg DAILYAC IVP 02/19/19 07:30 02/19/19 09:34 DC 02/19/19 07:30 Heparin Sodium/ Sodium Chloride (HEPARIN for ARTERIAL LINE FLUSH) 1,000 unit 1X ONCE IART 02/18/19 13:00 02/18/19 13:02 DC 02/18/19 13:00 Heparin Sodium/ Sodium Chloride (HEPARIN for ARTERIAL LINE FLUSH) 1,000 unit 1X ONCE IART 02/18/19 13:00 02/18/19 13:02 DC 02/18/19 13:00 Midazolam HCl (Versed) 2 mg 1X ONCE IV 02/18/19 13:00 02/18/19 13:02 DC 02/18/19 13:00 Fentanyl Citrate (Fentanyl 2ml Vial) 100 mcg 1X ONCE IV 02/18/19 13:00 02/18/19 13:02 DC 02/18/19 13:00 Iodixanol (Visipaque 320) 100 ml 1X ONCE IART 02/18/19 13:00 02/18/19 13:03 DC 02/18/19 13:00 Lidocaine HCl (Lidocaine 1% 20ml Vial) 20 ml 1X ONCE INJ 02/18/19 13:00 02/18/19 13:02 DC 02/18/19 13:00 Gabapentin (Neurontin) 400 mg TID PO 02/18/19 21:00 02/19/19 09:59 Insulin Human Lispro (HumaLOG) 0-9 UNITS TIDWMEALHC SQ 02/18/19 21:00 02/19/19 10:09 Aspirin (Ecotrin) 81 mg DAILYWBKFT PO 02/19/19 08:00 02/19/19 10:00 Docusate Sodium (Colace) 100 mg DAILY PO 02/19/19 10:00 02/19/19 10:00 Insulin Glargine (Lantus Syringe) 30 unit DAILY07 SQ 02/19/19 10:00 02/19/19 11:54 Tamsulosin HCl (Flomax) 0.4 mg DAILY08 PO 02/19/19 10:00 02/19/19 09:59 Clopidogrel Bisulfate (Plavix) 75 mg 1X ONCE PO 02/19/19 10:00 02/19/19 10:01 DC 02/19/19 11:52 Ferrous Sulfate (Feosol) 325 mg BID PO 02/19/19 10:00 02/19/19 11:52 ROSHAN SHERWOOD III DO Feb 19, 2019 13:03
[2019-02-19 15:11] LABS: ALBUM 3.2 g/dL (2.9-4.4); ALPHA 1 0.4 g/dL (0.0-0.4); ALPHA 2 1.4 g/dL (0.4-1.0); GAMMA 0.9 g/dL (0.4-1.8); IMMUNOGLOBULIN A 343 mg/dL (61-437); IMMUNOGLOBULIN G 873 mg/dL (700-1600); IMMUNOGLOBULIN M 14 mg/dL (20-172); PROTEIN TOTAL 6.8 g/dL (6.0-8.5); SPEP AG RATIO 0.9 (0.7-1.7)
[2019-02-19] MEDS: ATORVASTATIN CALCIUM 40 MG TABLET. PO SCH (20:24)
[2019-02-20 01:08] LABS: COPPER LEVEL 152 ug/dL (72-166)
[2019-02-20 03:59] VITALS: BP 157/70
[2019-02-20 04:12] LABS: BASO % 0 % (0-3); EOS % 0 % (0-3); HEMATOCRIT 27.8 % (39.0-53.0); HEMOGLOBIN 8.8 g/dL (13.0-17.5); LYMPH # 1.3 x10^3/uL (1.0-4.8); LYMPH % 10 % (24-48); MEAN CORPUSCULAR HEMOGLOBIN 24 pg (25-35); MEAN CORPUSCULAR HGB CONC 32 g/dL (31-37); MEAN CORPUSCULAR VOLUME 76 fL (79-100); MONO # 0.8 x10^3/uL (0.0-1.1); MONO % 6 % (0-9); NEUT # 11.1 x10^3/uL (1.8-7.7); NEUT % 84 % (31-73); PLATELET COUNT 298 x10^3/uL (140-400); RED BLOOD COUNT 3.66 x10^6/uL (4.30-5.70); RED CELL DISTRIBUTION WIDTH 19.5 % (11.5-14.5); WHITE BLOOD COUNT 13.2 x10^3/uL (4.0-11.0)
[2019-02-20 04:50] LABS: ALBUMIN 3.1 g/dL (3.4-5.0); ALBUMIN/GLOBULIN RATIO 0.7 (1.0-1.7); CALCIUM 9.2 mg/dL (8.5-10.1); CREATININE 1.5 mg/dL (0.7-1.3); GFR 46.7; TOTAL BILIRUBIN 0.4 mg/dL (0.2-1.0); TOTAL PROTEIN 7.4 g/dL (6.4-8.2)
[2019-02-20 07:15] LABS: PHOSPHORUS 3.9 mg/dL (2.6-4.7)
[2019-02-20 07:29] VITALS: BP 165/81
[2019-02-20] MEDS ORDERED: PANTOPRAZOLE 40 MG TABLET.DR. PO SCH (07:30)
[2019-02-20] MEDS ORDERED: CLOPIDOGREL BISULFATE 75 MG TABLET PO SCH (08:00)
[2019-02-20] MEDS ORDERED: PSYLLIUM HUSK (SUGAR FREE) 1 PKT PACKET PO SCH (09:00)
[2019-02-20] MEDS: ISOSORBIDE MONONITRATE ER 30 MG TAB.ER.24H PO SCH (09:03)
[2019-02-20] MEDS: GABAPENTIN 400 MG CAPSULE. PO SCH (09:03)
[2019-02-20] MEDS: FERROUS SULFATE 325 MG TABLET. PO SCH (09:03)
[2019-02-20] MEDS: ASPIRIN ENTERIC COATED 81 MG TABLET.DR. PO SCH (09:03)
[2019-02-20] MEDS: METOPROLOL TART IMMED RELEASE 50 MG TABLET. PO SCH (09:03)
[2019-02-20] MEDS: RANOLAZINE 500 MG TAB.ER.12H PO SCH (09:04)
[2019-02-20] MEDS: DOCUSATE SODIUM 100 MG CAPSULE. PO SCH (09:04)
[2019-02-20] MEDS: CYANOCOBALAMIN (VITAMIN B-12) 1,000 MCG/ML VIAL IM SCH (09:04)
[2019-02-20] MEDS: TAMSULOSIN 0.4 MG CAP.ER.24H. PO SCH (09:04)
[2019-02-20] MEDS: INSULIN GLARGINE SYRINGE. SQ SCH (09:11)
[2019-02-20] MEDS: INSULIN LISPRO 300 UNITS/3 ML VIAL. SQ SCH ×2 (09:12→13:41)
[2019-02-20] MEDS ORDERED: traMADol 50 MG TABLET PO PRN (09:45)
[2019-02-20 10:45] VITALS: BP 155/72
--- NOTE | 2019-02-20 12:32 | PDOC ---
[employer] PROGRESS NOTE Chief Complaint Chief Complaint Chest pain, NSTEMI History of Present Illness History of Present Illness 02/20/2019 Pt was seen and examined. Reports being stable and ready to go home. Currently has no acute complaints. This is a 68 yo male who transferred from the [facility] secondary to chest pain and elevated troponin. Patient follows with the [facility]. Has extensive cardiac history as noted below. Had routine visit with Dr. Smith a week and a half ago. Was SOA, slightly disoriented, and had mild chest pain. Was referred to the ED for further evaluation and treatment. Was admitted to the ICU. Hgb drifted from 12 range down to 7.4. Concerns for GI bleed. Underwent EGD and colonoscopy without any obvious bleeding per . Was discharge home with iron this past Friday. [place] well over the weekend. On Friday morning, legs were weak "felt like Jello" and had difficulty with speech. Had mild pain in his central chest and shortness of breath. Decided to go back to the ED at the [place]. Overnight, developed excruciating pain in his central chest. Describes as squeezing. Radiated down his left arm. Associated with nausea/vomiting, belching, and shortness of breath. Took nitro x4 without any significant relief. Was start on nitro and heparin gtt without any significant improvement. Was given IV morphine, which finally improved the pain. Trop was noted to be elevated, reportedly 6.5, and patient was transferred to [facility] for further evaluation and treatment. Presently CP free. 02/18: Patient seen and examined in ICU, patient is noted to be alert and oriented X3. Patient is currently on a heparin drip and is awaiting cardiac catheterization. Patient is currently wheezing upon lung auscultation. 02/19: Patient seen and examined in ICU, patient states that he did not receive his diabetes mediation overnight and this caused him to have a blood sugar of >300, patient appeared agitated by this. 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 Patient's anemia is being treated with Vitamin B12 along with Iron, hope to transfer out of ICU today. Vitals/I&O Vitals/I&O: Vital Signs Date Time Temp Pulse Resp B/P (MAP) Pulse Ox O2 Delivery O2 Flow Rate FiO2 02/20/19 11:32 96 Room Air 2.5 02/20/19 10:45 67 155/72 (99) 02/20/19 07:29 97.7 97.7 02/20/19 03:59 16 I & O 02/19/19 02/19/19 02/20/19 15:00 23:00 07:00 Intake Total 600 ml 175 ml 600 ml Output Total 1035 ml 1175 ml 700 ml Balance -435 ml -1000 ml -100 ml Physical Exam General: Alert, Oriented X3, Cooperative, No acute distress Heart: Regular rate, Other (distant heart tones ) Lungs: Wheezing Abdomen: Normal bowel sounds, Soft, No tenderness, No hepatosplenomegaly, Other (obese ) Extremities: No clubbing, No cyanosis, No edema, Normal pulses Skin: No rashes, No breakdown, No significant lesion Labs Labs: Laboratory Tests Test 02/19/19 18:07 02/19/19 20:28 02/20/19 04:00 02/20/19 07:08 Glucose (Fingerstick) 305 mg/dL (70-99) 215 mg/dL (70-99) 227 mg/dL (70-99) White Blood Count 13.2 x10^3/uL (4.0-11.0) Red Blood Count 3.66 x10^6/uL (4.30-5.70) Hemoglobin 8.8 g/dL (13.0-17.5) Hematocrit 27.8 % (39.0-53.0) Mean Corpuscular Volume 76 fL (79-100) Mean Corpuscular Hemoglobin 24 pg (25-35) Mean Corpuscular Hemoglobin Concent 32 g/dL (31-37) Red Cell Distribution Width 19.5 % (11.5-14.5) Platelet Count 298 x10^3/uL (140-400) Neutrophils (%) (Auto) 84 % (31-73) Lymphocytes (%) (Auto) 10 % (24-48) Monocytes (%) (Auto) 6 % (0-9) Eosinophils (%) (Auto) 0 % (0-3) Basophils (%) (Auto) 0 % (0-3) Neutrophils # (Auto) 11.1 x10^3/uL (1.8-7.7) Lymphocytes # (Auto) 1.3 x10^3/uL (1.0-4.8) Monocytes # (Auto) 0.8 x10^3/uL (0.0-1.1) Eosinophils # (Auto) 0.0 x10^3/uL (0.0-0.7) Basophils # (Auto) 0.0 x10^3/uL (0.0-0.2) Sodium Level 143 mmol/L (136-145) Potassium Level 5.0 mmol/L (3.5-5.1) Chloride Level 104 mmol/L (98-107) Carbon Dioxide Level 33 mmol/L (21-32) Anion Gap 6 (6-14) Blood Urea Nitrogen 29 mg/dL (8-26) Creatinine 1.5 mg/dL (0.7-1.3) Estimated GFR (Cockcroft-Gault) 46.7 BUN/Creatinine Ratio 19 (6-20) Glucose Level 235 mg/dL (70-99) Calcium Level 9.2 mg/dL (8.5-10.1) Phosphorus Level 3.9 mg/dL (2.6-4.7) Magnesium Level 2.1 mg/dL (1.8-2.4) Total Bilirubin 0.4 mg/dL (0.2-1.0) Aspartate Amino Transf (AST/SGOT) 16 U/L (15-37) Alanine Aminotransferase (ALT/SGPT) 8 U/L (16-63) Alkaline Phosphatase 122 U/L (46-116) Total Protein 7.4 g/dL (6.4-8.2) Albumin 3.1 g/dL (3.4-5.0) Albumin/Globulin Ratio 0.7 (1.0-1.7) Review of Systems Review of Systems: Denies CP Denies SOB Denies N/V/D Assessment and Plan Assessmemt and Plan Chest Pain NSTEMI Plan: 1) pt is amenable to outpatient f/u, plan to d/c patient today 2) Added ultram 50mg q 6 for pain management 3) Pt to f/u with Heme/Onc on an outpatient basis for suspected colon cancer (biopsy done at the [place]) 4) Continue B12 and Iron supplementation 5) Full Code 6) DVT prophylaxis 7) PT/OT Comment Review of Relevant I have reviewed the following items mildred (where applicable) has been applied. Medications: Current Medications Medications (Trade) Dose Ordered Sig/Mejia Route PRN Reason Start Time Stop Time Status Last Admin Dose Admin Pantoprazole Sodium (Protonix) 40 mg DAILYAC PO 02/20/19 07:30 02/20/19 09:04 Clopidogrel Bisulfate (Plavix) 75 mg DAILYWBKFT PO 02/20/19 08:00 02/20/19 09:03 Tramadol HCl (Ultram) 50 mg PRN Q6HRS PRN PO PAIN 02/20/19 09:45 02/20/19 10:06 ROSHAN SHERWOOD III DO Feb 20, 2019 12:32
--- NOTE | 2019-02-20 14:27 | NUR ---
Discharge Note: CE MORALES Discharge instructions and discharge home medications reviewed with Patient and a copy given. All questions have been answered and understanding verbalized.
--- NOTE | 2019-02-21 19:38 | DS ---
DATE OF DISCHARGE: 02/20/2019 ADMISSION DIAGNOSIS: Acute myocardial infarction. DISCHARGE DIAGNOSIS: Resolving myocardial infarction. PROCEDURES: Cardiac catheterization, which showed collateral occlusions and they opted for medical management, resolving heart failure. HOSPITAL COURSE: The patient is a pleasant 68-year-old male who has a known history of coronary artery disease and heart failure, who presented with chest pain. He was noted to have a bump in his troponin and elevated ST segments. He was taken to the laboratory inspector but they could not place any stents. He was then sent back to his room with medical management. Yesterday, we saw and examined him. He was doing much better. We discharged to home on LAUREN inhibitors, beta blockade, antiplatelet drugs and statins. DISPOSITION: Home. ACTIVITY: As tolerated. DIET: Low sodium. MEDICATIONS: Please see MRAD. TOTAL TIME: 36 minutes. ROSHAN SHERWOOD DO DR: GEORGE/leandra JOB#: [id number] / [id number]
== END 2019-02-20 14:00 | disposition home or self-care (01) | DRG 280 ==
LOC: 1 WEST ICU 09:44 → 2 SOUTH 02-19 20:10
PROVIDERS: ADMIT Internal Medicine; ATTEND Internal Medicine
PROC: 5A09357 Assistance with Respiratory Ventilation, Less than 24 Consecutive Hours, Continuous Positive Airway Pressure (ICD-10-PCS; 2019-02-17)
PROC: 4A023N7 Measurement of Cardiac Sampling and Pressure, Left Heart, Percutaneous Approach (ICD-10-PCS; principal; 2019-02-18)
PROC: B2111ZZ Fluoroscopy of Multiple Coronary Arteries using Low Osmolar Contrast (ICD-10-PCS; 2019-02-18)
PROC: B2131ZZ Fluoroscopy of Multiple Coronary Artery Bypass Grafts using Low Osmolar Contrast (ICD-10-PCS; 2019-02-18)
PROC: 5A09357 Assistance with Respiratory Ventilation, Less than 24 Consecutive Hours, Continuous Positive Airway Pressure (ICD-10-PCS; 2019-02-18)
DX: I21.4 Non-ST elevation (NSTEMI) myocardial infarction (principal); J96.20 Acute and chronic respiratory failure, unspecified whether with hypoxia or hypercapnia; I50.43 Acute on chronic combined systolic (congestive) and diastolic (congestive) heart failure; I13.0 Hypertensive heart and chronic kidney disease with heart failure and stage 1 through stage 4 chronic kidney disease, or unspecified chronic kidney disease; N17.9 Acute kidney failure, unspecified; C43.9 Malignant melanoma of skin, unspecified; D50.0 Iron deficiency anemia secondary to blood loss (chronic); E11.22 Type 2 diabetes mellitus with diabetic chronic kidney disease; E11.65 Type 2 diabetes mellitus with hyperglycemia; E66.9 Obesity, unspecified; E78.5 Hyperlipidemia, unspecified; F17.200 Nicotine dependence, unspecified, uncomplicated; F41.9 Anxiety disorder, unspecified; G47.33 Obstructive sleep apnea (adult) (pediatric); I25.110 Atherosclerotic heart disease of native coronary artery with unstable angina pectoris; I25.2 Old myocardial infarction; J44.9 Chronic obstructive pulmonary disease, unspecified; K21.9 Gastro-esophageal reflux disease without esophagitis; K59.00 Constipation, unspecified; K57.30 Diverticulosis of large intestine without perforation or abscess without bleeding; M19.90 Unspecified osteoarthritis, unspecified site; N18.9 Chronic kidney disease, unspecified; N40.0 Benign prostatic hyperplasia without lower urinary tract symptoms; Z96.659 Presence of unspecified artificial knee joint; Z82.49 Family history of ischemic heart disease and other diseases of the circulatory system; Z85.820 Personal history of malignant melanoma of skin; Z87.11 Personal history of peptic ulcer disease; Z87.19 Personal history of other diseases of the digestive system; Z90.49 Acquired absence of other specified parts of digestive tract; Z95.1 Presence of aortocoronary bypass graft; Z95.5 Presence of coronary angioplasty implant and graft; Z83.3 Family history of diabetes mellitus; Z88.8 Allergy status to other drugs, medicaments and biological substances; Z88.6 Allergy status to analgesic agent; Z91.013 Allergy to seafood; Z71.6 Tobacco abuse counseling; D51.0 Vitamin B12 deficiency anemia due to intrinsic factor deficiency
CPT/HCPCS: 36415; 71045; 76770; 80053; 80061; 81001; 82525; 82550; 82607; 82728; 82962; 83540; 83550; 83735; 84100; 84165; 84300; 84484; 85007; 85025; 85027; 85045; 85347; 85520; 86334; 86850; 86900; 86901; 86920; 87086; 93005; 93308; 93459; 94660; 99152; 99153; C1769; C1892; C9113; J1200; J1644; J1815; J2250; J2270; J2930; J3010; J3420; J3475; J3490; J7030; Q9967; G0378